=== PATIENT | male | born 1960 | race African-American/Black ===

== ENCOUNTER 2019-06-05 21:40 | Observation (INO) | payer BC, SELFPAY ==
--- NOTE | ~2019-06-05 | XR_ITS ---
EXAMINATION: XR chest 2V EXAM DATE: 06/05/2019 22:09 INDICATION: Midsternal chest pain. Hypertension. TECHNIQUE: Frontal and lateral projections of the chest obtained and reviewed. There is no prior neftali dy for comparison. FINDINGS: The lungs are clear. There are no pleural effusions. The cardiomediastinal silhouette is within normal limits. There is no pneumothorax suspected. Patient has diffuse idiopathic skeletal h yperostosis (DISH). IMPRESSION: No acute cardiopulmonary findings. Reviewed, dictated and finalized at location G.
[2019-06-05 21:45] VITALS: BP 165/98; PULSE 77; RESP 20; TEMP 36.7; O2SAT 99
[2019-06-05] MEDS: ASPIRIN 81 MG CHEWABLE TABLET 324 MG PO (21:56)
--- NOTE | 2019-06-05 21:56 | ECG_ITS ---
Measurements Intervals [place] Rate: 84 P: 21 UT: 191 QRS: -28 QRSD: 79 T: 124 QT: 365 QTc: 432 Interpretive Statements SINUS RHYTHM LEFT VENTRICULAR HYPERTROPHY AND ST-T CHANGE POOR R WAVE PROGRESSION, ANTERIOR LEADS ST ELEVATION IN ANT/INF LEADS- PROBABLY DUE TO LEFT VENTRICULAR HYPERTROPHY OR EARLY REPOLARIZATION BASELINE ARTIFACT- v5 BORDERLINE ECG Electronically Signed On 06-06-2019 7:34:26 CDT by Hamilton Guo D.O.
--- NOTE | 2019-06-05 21:56 | ED.CHESTPAIN ---
HPI - Chest Pain General Chief Complaint: Chest Pain Stated Complaint: chest tightness Time Seen by Provider: 06/05/19 21:48 Source: patient History of Present Illness complaint: chest pain and chest discomfort Onset (ago): day(s) (2) Timing of current episode: constant Onset: during rest and during exertion Pain location: substernal Pain radiation: none Severity: moderate Quality: tightness Relieving factors: nothing Exacerbating factors: nothing Treatment prior to arrival: none Related Data Allergies Allergy/AdvReac Type Severity Reaction Status Date / Time No Known Allergies Allergy Verified 06/05/19 21:50 Review of Systems Review of Systems: All systems reviewed & are unremarkable except as noted in HPI and below Constitutional: Constitutional: Denies body ache(s), Denies chills, Denies excessive sweating, Denies fatigue, Denies fever(s), Denies headache(s), Denies lethargy, Denies malaise, Denies weakness and Denies weight loss Eyes: Eyes: Denies blurry vision, Denies change in vision and Denies loss of vision ENT: Denies dizziness, Denies ear discharge, Denies headache(s), Denies lip swelling, Denies epistaxis, Denies nasal congestion, Denies neck pain, Denies throat swelling and Denies tongue swelling Cardiovascular: Cardiovascular: Denies diaphoresis, Denies rapid heart rate, Denies edema, Denies irregular heart rhythm, Denies lightheadedness, Denies palpitations, Denies dyspnea and Denies dyspnea on exertion Respiratory: Respiratory: Denies chest congestion, Denies cough, Denies hemoptysis, Denies dyspnea and Denies dyspnea on exertion Gastrointestinal: Gastrointestinal: Denies abdominal pain, Denies melena, Denies hematochezia, Denies diarrhea, Denies nausea, Denies vomiting and Denies hematemesis Musculoskeletal: Musculoskeletal: Denies abnormal gait, Denies deformity, Denies joint swelling, Denies limited range of motion, Denies neck pain and Denies numbness Neurologic: Denies Abnormal speech present, Denies abnormal gait, Denies confusion, Denies dizziness, Denies headache(s), Denies focal weakness, Denies loss of vision, Denies numbness, Denies Other visual disturbances, Denies Sensory deficit (Neuro) and Denies weakness Psychiatric: Psychiatric: Denies confusion, Denies depression, Denies auditory hallucinations, Denies homicidal ideation and Denies suicidal ideation Endocrine: Endocrine: Denies cold intolerance, Denies excessive sweating, Denies fatigue, Denies heat intolerance and Denies palpitations Hematologic/Lymphatic: Hematologic/Lymphatic: Denies easy bleeding and Denies easy bruising Allergic/Immunologic: Allergic/Immunologic: Denies lip swelling, Denies throat swelling and Denies tongue swelling Exam Const: General: cooperative, healthy appearing, comfortable, no acute distress, well developed, alert and awake; No confusion Orientation/consciousness: oriented to person, oriented to place, oriented to time, patient oriented x3 and No confusion Limitations: no limitations HENMT: Head: normal to inspection, normocephalic and atraumatic Ears: hearing grossly normal bilaterally, TM normal on the right and TM normal on the left General nose exam: Normal external nose present, Normal nares present and No nasal discharge present Face and sinus: normal facial exam Mouth: Yes Normal oral and palatal mucosa present, Yes lip normal, Yes tongue normal and Yes oropharynx normal Throat: posterior oropharynx normal, tonsils normal and uvula midline Eyes: General: appearance normal, both eyes and all related structures Pupils: Equal, round and reactive pupils present EOM: EOMs intact bilaterally Neck: Neck: normal visual inspection, full ROM, no lymphadenopathy and no meningeal signs Chest: Chest palpation & inspection: normal inspection of the chest Resp: Effort & Inspection: normal respiratory effort, able to speak in complete sentences, no respiratory distress and not tachypneic Auscultation: clear to aus
[2019-06-05 21:57] LABS: Basophils Percent Auto 0.4 % (0.2-1.2); Eosinophils Absolute Auto 0.1 K/mm3 (0-0.3); Hematocrit 47.5 % (42.0-52.0); Hemoglobin 16.1 g/dL (14.0-18.0); Lymphocytes Absolute Auto 2.64 K/mm3 (0.9-3.2); Lymphocytes Percent Auto 51.4 % (18.3-44.2); Mean Corpuscular HGB Conc 33.9 g/dl (32-36); Mean Corpuscular Hemoglobin 31.3 pg (26-34); Mean Corpuscular Volume 92.4 fl (80-100); Mean Platelet Volume 11.7 fl (7.4-10.4); Monocytes Absolute Auto 0.6 K/mm3 (0.1-0.6); Monocytes Percent Auto 11.7 % (2.6-8.5); Neutrophils Absolute Auto 1.8 K/mm3 (1.3-6.7); Neutrophils Percent Auto 35.5 % (45.5-73.1); Platelet Count Result 176 k/mm3 (150-375); Red Blood Count 5.14 M/mm3 (4.6-6.20); Red Cell Distribution Width 13.2 % (11.5-14.5); White Blood Count 5.1 K/mm3 (4.5-10.0)
[2019-06-05 22:09] LABS: Blood Urea Nitrogen 21 mg/dL (9-20); Calcium 9.3 mg/dL (8.4-10.2); Carbon Dioxide 27 mmol/L (22-30); Chloride 104 mmol/L (98-107); Estimated CRCL calculation 53 ml/min; Estimated Glomerular Filt Rate 58; Glucose 120 mg/dL (75-110); Potassium 3.9 mmol/L (3.4-5.0); Sodium 140 mmol/L (137-145)
[2019-06-05 22:10] LABS: Partial Thromboplastin Time 30.9 SECONDS (22.3-36.8)
[2019-06-05 22:21] LABS: Troponin I < 0.012 ng/mL (0.000-0.034)
[2019-06-05 23:11] VITALS: BP 138/90; PULSE 64; RESP 20; O2SAT 97
[2019-06-06 00:09] VITALS: BP 141/85; PULSE 57; RESP 16; O2SAT 100
[2019-06-06 00:10] VITALS: BP 141/88; PULSE 88; RESP 15; O2SAT 100
[2019-06-06 00:15] VITALS: BP 153/92; PULSE 55; RESP 18; TEMP 36.8; O2SAT 100
--- NOTE | 2019-06-06 00:48 | ECG_ITS ---
Measurements Intervals [place] Rate: 53 P: 28 [place]: 205 QRS: -26 QRSD: 78 T: 139 QT: 444 QTc: 418 Interpretive Statements SINUS BRADYCARDIA BORDERLINE AV CONDUCTION DELAY LEFT VENTRICULAR HYPERTROPHY AND ST-T CHANGE BORDERLINE R WAVE PROGRESSION, ANTERIOR LEADS ST ELEVATION IN ANT/INF LEADS- PROBABLY DUE TO LVH BORDERLINE ECG Electronically Signed On 06-06-2019 7:35:23 CDT by Hamilton Guo D.O.
[2019-06-06 00:56] VITALS: BMI 32.0
[2019-06-06 01:07] LABS: Troponin I < 0.012 ng/mL (0.000-0.034)
--- NOTE | 2019-06-06 03:48 | ECG_ITS ---
Measurements Intervals [place] Rate: 58 P: 23 [place]: 191 QRS: -28 QRSD: 91 T: 135 QT: 433 QTc: 429 Interpretive Statements SINUS BRADYCARDIA LEFT VENTRICULAR HYPERTROPHY AND ST-T CHANGE BORDERLINE R WAVE PROGRESSION, ANTERIOR LEADS ST ELEVATION IN ANT/INF LEADS- PROBABLY DUE TO LVH BORDERLINE ECG Electronically Signed On 06-06-2019 7:36:05 CDT by Hamilton Guo D.O.
[2019-06-06 04:00] VITALS: BP 144/89; PULSE 53; PULSE 55; RESP 18; TEMP 36.7; O2SAT 100
[2019-06-06 04:25] LABS: Troponin I < 0.012 ng/mL (0.000-0.034)
--- NOTE | 2019-06-06 06:20 | PC.NURSE ---
This patient, Harpal Rivas, was transferred to [facility] on 06/06/19 at 0610. Personal belongings sent with patient. Belongings list checked and signed with receiving. Report given to Clint MOSCOSO. Appropriate documentation sent with patient.
[2019-06-06 08:37] VITALS: BP 140/90; PULSE 55; RESP 14; O2SAT 99
--- NOTE | 2019-06-06 10:54 | PM.IMHP ---
H&P: HPI History of Present Illness Chief complaint: Chest Pain Narrative: Date of service: 06/06/2019. Harpal Riavs is a 59 year old male with past history of hypertension chronic kidney disease who presents to the hospital complaining of central chest discomfort. Started Two days. He states that when he drinks fluids weight is something he feels that he has to belch and then once he belches he feels relief of symptoms. It feels like indigestion. Denies shortness of breath, lower limb edema, orthopnea, paroxysmal nocturnal dyspnea, dizziness, syncope, lower limb edema. EKG interpreted myself shows sinus rhythm, LVH, T inversion leads 1 and aVL likely strain pattern. Troponins x2 negative. Review of Systems Review of Systems: All systems reviewed & are unremarkable except as noted in HPI and below Constitutional: Constitutional: Denies chills, Denies fatigue, Denies fever(s), Denies headache(s) and Denies snoring Eyes: Eyes: Denies eye discharge and Denies loss of vision ENT: Denies dizziness, Denies headache(s), Denies nasal discharge and Denies sore throat Cardiovascular: Cardiovascular: Reports as per HPI, Reports chest pain, Denies syncope, Denies rapid heart rate, Denies leg edema, Denies dyspnea, Denies dyspnea on exertion, Denies orthopnea and Denies paroxysmal nocturnal dyspnea Respiratory: Respiratory: Denies chest congestion, Denies cough, Denies dyspnea, Denies dyspnea on exertion, Denies snoring and Denies wheezing Gastrointestinal: Gastrointestinal: Denies abdominal pain, Denies diarrhea, Denies nausea and Denies vomiting Genitourinary: Genitourinary: Denies hematuria, Denies dysuria, Denies flank pain and Denies urinary frequency Musculoskeletal: Musculoskeletal: Denies myalgias, Denies arthralgias and Denies joint swelling Neurologic: Denies Abnormal speech present, Denies dizziness, Denies syncope, Denies headache(s), Denies focal weakness and Denies loss of vision Psychiatric: Psychiatric: Denies anxiety and Denies depression Endocrine: Endocrine: Denies cold intolerance, Denies fatigue and Denies heat intolerance Hematologic/Lymphatic: Hematologic/Lymphatic: Denies easy bleeding and Denies easy bruising Allergic/Immunologic: Allergic/Immunologic: Denies urticaria and Denies wheezing PMFSH Past Medical History Medical History Chronic kidney disease Hypertension Family History Family History Father Diabetes mellitus Mother Diabetes mellitus Sibling Diabetes mellitus Sibling Diabetes mellitus Sibling Diabetes mellitus Sibling Diabetes mellitus Sibling Diabetes mellitus Sibling Diabetes mellitus Sibling Diabetes mellitus Sibling Diabetes mellitus Social History Social History Smoking status: Never smoker Meds Home Medications and Allergies Home Medications Medication Instructions Recorded Confirmed Type amlodipine-atorvastatin 1 tablet PO DAILY 06/06/19 06/06/19 History valacyclovir 500 mg PO DAILY 06/06/19 06/06/19 History Allergies Allergy/AdvReac Type Severity Reaction Status Date / Time No Known Allergies Allergy Verified 06/05/19 21:50 Vital Signs Vital Signs - 24 hr 06/05/19 21:45 06/05/19 23:11 06/06/19 00:09 Temperature 36.7 C Pulse Rate 77 64 57 L Respiratory Rate 20 20 16 Blood Pressure 165/98 H 138/90 141/85 H Pulse Oximetry 99 97 100 06/06/19 00:10 06/06/19 00:15 06/06/19 04:00 Temperature 36.8 C 36.7 C Pulse Rate 88 55 L 55 L Respiratory Rate 15 18 18 Blood Pressure 141/88 H 153/92 H 144/89 H Pulse Oximetry 100 100 100 06/06/19 08:37 Temperature Pulse Rate 55 L Respiratory Rate 14 Blood Pressure 140/90 Pulse Oximetry 99 Exam Const: General: cooperative, healthy appearing, comfortable, no acute distress and well developed Nutritional Appearance: well n
--- NOTE | 2019-06-06 11:15 | PM.DS ---
DS: Diagnosis Admitting Diagnosis Admitting Diagnosis: Chest pain, unspecified Patient was admitted for chest pain that felt to be atypical. Troponins x3 negative and no ischemic changes on EKG. Telemetry was reviewed and no arrhythmias. Offered stress testing but patient preferred to go home because he did not want to stay NPO. Given normal troponins we agree that he can be discharged home and follow up as an outpatient. DS: Summary Time Spent with Patient Time attestation: Total time spent providing and/or coordinating discharge services:25 minutes Exam Const: General: cooperative, comfortable, no acute distress, alert and awake Nutritional Appearance: well nourished Orientation/consciousness: patient oriented x3 HENMT: Head: normal to inspection, normocephalic and atraumatic Ears: hearing grossly normal bilaterally General nose exam: Normal external nose present, Normal nares present and no nasal discharge noted Face and sinus: normal facial exam and no erythema Mouth: No drooling and No restricted motion Throat: uvula midline Eyes: General: appearance normal, both eyes and all related structures Alignment and Position: position normal Conjunctivae: conjunctivae normal Sclera: sclerae normal Direct Ophthalmoscopy: No photophobia Neck: Neck: normal visual inspection and no JVD Thyroid: thyroid normal Carotids: no bruits Lymphatic: lymphedema not noted Chest: Chest palpation & inspection: normal inspection of the chest and no tenderness Resp: Effort & Inspection: normal respiratory effort and no nasal flaring Auscultation: clear to auscultation bilaterally, no crackles, no rales and no wheezes Cardio: Jugular venous distension: no JVD Rate: regular rate Rhythm: regular rhythm Heart sounds: S1 normal heart sound present, S2 normal heart sound present, no gallops, no murmurs and no rubs GI: Inspection: non-distended GI Palp: No abdominal tenderness and No Soft to palpation Auscultation: normal bowel sounds Rectal Exam: deferred : General: No no CVA tenderness Back/Spine/Pelvis: Back: No no CVA tenderness Cervical Spine: cervical ROM normal Skin: General skin exam: normal color and rashes and/or lesions noted Neuro: General: patient oriented x3 Cranial nerves: No CN's II-XII intact bilaterally Speech: normal speech Motor exam (neuro): no tremors Extrem: General: normal to inspection and pedal edema present Psych: Appearance: grossly normal and well kempt Speech and movement: Normal speech and movement present Affect: normal affect DS: Data Data Completed and Pending Labs on day of discharge: Labs from last 24 hours 06/06/19 06/06/19 06/05/19 03:45 00:39 21:51 WBC RBC Hgb Hct MCV MCH MCHC RDW Plt Count MPV Immature Gran % (Auto) Neut % (Auto) Lymph % (Auto) Mcmullen % (Auto) Eos % (Auto) Baso % (Auto) Lymph # (Auto) Mcmullen # (Auto) Eos # (Auto) Baso # (Auto) Abs Immat Gran (auto) Absolute Neuts (auto) Absolute Nucleated RBC Nucleated RBC % PT INR APTT Sodium 140 Potassium 3.9 Chloride 104 Carbon Dioxide 27 BUN 21 H Creatinine 1.50 H Estim Creat Clear Calc 53 Estimated GFR 58 L Glucose 120 H Calcium 9.3 Troponin I < 0.012 < 0.012 < 0.012 06/05/19 06/05/19 21:51 21:51 WBC 5.1 RBC 5.14 Hgb 16.1 Hct 47.5 MCV 92.4 MCH 31.3 MCHC 33.9 RDW 13.2 Plt Count 176 MPV 11.7 H Immature Gran % (Auto) 0.0 Neut % (Auto) 35.5 L Lymph % (Auto) 51.4 H Mcmullen % (Auto) 11.7 H Eos % (Auto) 1.0 Baso % (Auto) 0.4 Lymph # (Auto) 2.64 Mcmullen # (Auto) 0.6 Eos # (Auto) 0.1 Baso # (Auto) 0.0 Abs Immat Gran (auto) 0.00 Absolute Neuts (auto) 1.8 Absolute Nucleated RBC 0.0 Nucleated RBC % 0.0 PT 13.0 INR 1.0 APTT 30.9 Sodium Potassium Chloride Carbon Dioxide BUN Creatinine Estim Creat Clear Calc Estimated GFR
--- NOTE | 2019-06-06 11:40 | PC.NURSE ---
1130-pt given D/C orders and instructions. Questions answered and verbalized understanding. AOx4. PIV removed. Ambulated per request to waiting vehicle. No distress noted or verbalized at time of departure.
== END 2019-06-06 11:26 | disposition home or self-care (01) ==
LOC: ANHED 23:21 → ANHIMU 06-06 00:53 → ANHCPC 06-06 08:14 → ANHIMU 06-07 14:35
PROVIDERS: Admitting Provider Internal Medicine Cardiovascular Disease; Emergency Provider Emergency Medicine; PCP Family Medicine; Visit Provider Internal Medicine Cardiovascular Disease
DX: R07.9 Chest pain, unspecified (principal); I12.9 Hypertensive chronic kidney disease with stage 1 through stage 4 chronic kidney disease, or unspecified chronic kidney disease; N18.9 Chronic kidney disease, unspecified
CPT/HCPCS: 36415; 71046; 80048; 84484; 85025; 85610; 85730; 93005; 99285; A9270; G0378

== ENCOUNTER 2019-11-21 19:35 | Emergency (ER) | payer BC, SELFPAY ==
[2019-11-21 19:40] VITALS: BP 177/94; PULSE 56; RESP 12; TEMP 36.2; O2SAT 100
--- NOTE | 2019-11-21 20:14 | ED.GENADULT ---
HPI - General Adult General Chief complaint: Extremity Injury, Upper Stated complaint: Pulled muscle? Time Seen by Provider: 11/21/19 19:54 Source: patient Mode of arrival: ambulatory Limitations: no limitations History of Present Illness HPI narrative: Patient is a 59-year-old male who presents to emergency department for evaluation of right neck and shoulder pain that began after swimming on Monday patient notes that the pain was an aching burning pain worse with activity and movement patient the next day went swimming again which made the pain worse patient denies other injury or trauma or similar occurrence patient took Aleve with relief but notes that the pain returns after the Aleve wears off. Related Data Home Medications Medication Instructions Recorded Confirmed amlodipine-atorvastatin 1 tablet PO DAILY 06/06/19 06/06/19 valacyclovir 500 mg PO DAILY 06/06/19 06/06/19 Allergies Allergy/AdvReac Type Severity Reaction Status Date / Time No Known Allergies Allergy Verified 11/21/19 19:52 Review of Systems Review of Systems: All systems reviewed & are unremarkable except as noted in HPI and below PMFSH Past Medical History Medical History (Updated 11/21/19 @ 20:17 by Paxton Hill PA-C) Chronic kidney disease Hypertension Family History Family History Father Diabetes mellitus Mother Diabetes mellitus Sibling Diabetes mellitus Sibling Diabetes mellitus Sibling Diabetes mellitus Sibling Diabetes mellitus Sibling Diabetes mellitus Sibling Diabetes mellitus Sibling Diabetes mellitus Sibling Diabetes mellitus Social History Social History Smoking status: Never smoker Gender identity (if verbalized by the patient): Male Exam Narrative: Exam Narrative: GENERAL: Well-appearing, well-nourished, and in no acute distress. HEAD: Normocephalic, atraumatic. EYES: PERRLA and EOMI. ENT: Nares clear, no rhinorrhea or epistaxis. Mucous membranes moist. NECK: Supple. No adenopathy or masses. No carotid bruits or JVD CHEST: Clear to auscultation. No respiratory distress. No wheezes rales or rhonchi HEART: Regular rate and rhythm. No murmur heard. Normal peripheral pulses. EXTREMITIES: Normal range of motion. No edema. Tenderness of the right rotator cuff musculature trapezius and right paraspinal musculature SKIN: Warm, dry, no rash. NEURO: No focal deficits. Alert and oriented x3. Cranial nerves II through XII grossly intact PSYCH: Normal mood and affect. Course Course Emergency Course: Patient in the room aware of case findings treatment plan diagnosis Vital Signs Vital signs: Vital Signs Temperature 97.1 F L 11/21/19 19:40 Pulse Rate 56 L 11/21/19 19:40 Respiratory Rate 12 11/21/19 19:40 Blood Pressure 177/94 H 11/21/19 19:40 Pulse Oximetry 100 11/21/19 19:40 Temperature 97.1 F L 11/21/19 19:40 Pulse Rate 56 L 11/21/19 19:40 Respiratory Rate 12 11/21/19 19:40 Blood Pressure 177/94 H 11/21/19 19:40 Pulse Oximetry 100 11/21/19 19:40 Medical Decision Making MDM Narrative Medical decision making narrative: Patients injury or pain is consistent with musculoskeletal etiology. No signs of neurological or vascular compromise on exam. Compartments and tisues are soft without signs of compartment syndrome. Pain is felt appropriate for further evaluation on an outpatient basis. Vital Signs Vital Signs: Vital Signs Temperature 97.1 F L 11/21/19 19:40 Pulse Rate 56 L 11/21/19 19:40 Respiratory Rate 12 11/21/19 19:40 Blood Pressure 177/94 H 11/21/19 19:40 Pulse Oximetry 100 11/21/19 19:40 Temperature 97.1 F L 11/21/19 19:40 Pulse Rate 56 L 11/21/19 19:40 Respiratory Rate 12 11/21/19 19:40 Blood Pressure 177/94 H 11/21/19 19:40 Pulse Oximetry 100 11/21/19 19:40 Discharge Plan Discharge Clinical Impressi
== END 2019-11-21 20:47 | disposition home or self-care (01) ==
PROVIDERS: Emergency Provider Emergency Medicine; PCP Family Medicine
DX: M54.12 Radiculopathy, cervical region (principal); I12.9 Hypertensive chronic kidney disease with stage 1 through stage 4 chronic kidney disease, or unspecified chronic kidney disease; N18.9 Chronic kidney disease, unspecified
CPT/HCPCS: 99283

== ENCOUNTER 2021-06-23 19:20 | Observation (INO) | payer BC, SELFPAY ==
[2021-06-23] VITALS (22 sets, daily range): BP systolic 133–156; BP diastolic 80–98; PULSE 44–60; RESP 12–20; TEMP 35.7–36.4; O2SAT 97–100
--- NOTE | ~2021-06-23 | XR_ITS ---
EXAMINATION: XR chest 2V Exam Date/Time: 06/23/2021 19:45 CDT HISTORY: MEDIAL CP, TAKES BLOOD PRESSURE AND CHOLESTEROL MEDICATION Comparison: 06/05/2019. RESULT: Lines, tubes, and devices: None. Lungs and pleura: Clear. Cardiomediastinal silhouette: Stable cardiomediastinal silhouette. Other: No acute osseous or upper abdominal finding. IMPRESSION: No acute cardiopulmonary process. Reviewed, dictated and finalized at location K.
--- NOTE | 2021-06-23 19:38 | ECG_ITS ---
Measurements Intervals [place] Rate: 57 P: 34 [place]: 194 QRS: -27 QRSD: 93 T: 138 QT: 437 QTc: 427 Interpretive Statements SINUS BRADYCARDIA LEFT VENTRICULAR HYPERTROPHY AND ST-T CHANGE T WAVE ABNORMALITY IN ANTEROLATERAL- CONSIDER ISCHEMIA ABNORMAL ECG Electronically Signed On 06-23-2021 20:10:19 CDT by Hamilton Guo D.O.
[2021-06-23 19:56] LABS: Basophils Percent Auto 0.7 % (0.2-1.2); Eosinophils Absolute Auto 0.1 K/mm3 (0-0.3); Eosinophils Percent Auto 1.8 % (0-4.4); Hematocrit 43.7 % (42.0-52.0); Hemoglobin 14.5 g/dL (14.0-18.0); Immature Granulocyte Absolute 0.01 K/mm3 (0.00-0.031); Immature Granulocyte Percent A 0.2 % (0-0.5); Lymphocytes Absolute Auto 2.47 K/mm3 (0.9-3.2); Lymphocytes Percent Auto 55.8 % (18.3-44.2); Mean Corpuscular HGB Conc 33.2 g/dl (32-36); Mean Corpuscular Hemoglobin 31.5 pg (26-34); Mean Corpuscular Volume 94.8 fl (80-100); Mean Platelet Volume 11.2 fl (7.4-10.4); Monocytes Absolute Auto 0.6 K/mm3 (0.1-0.6); Monocytes Percent Auto 13.3 % (2.6-8.5); Neutrophils Absolute Auto 1.3 K/mm3 (1.3-6.7); Neutrophils Percent Auto 28.2 % (45.5-73.1); Platelet Count Result 166 k/mm3 (150-375); Red Blood Count 4.61 M/mm3 (4.6-6.20); White Blood Count 4.4 K/mm3 (4.5-10.0)
[2021-06-23 20:07] LABS: INR 1.1; Prothrombin Time 13.4 Seconds (11.1-14.7)
[2021-06-23 20:08] LABS: Partial Thromboplastin Time 33.4 SECONDS (22.3-36.8)
[2021-06-23 20:09] LABS: Alanine Aminotransferase 47 U/L (6-50); Albumin Level 4.5 g/dL (3.5-5.1); Alkaline Phosphatase 46 U/L (38-126); Anion Gap 6 mmol/L (8-16); Aspartate Amino Transferase 40 U/L (17-59); Bilirubin,Total 0.4 mg/dL (0.2-1.3); Blood Urea Nitrogen 16 mg/dL (9-20); Calcium 8.8 mg/dL (8.4-10.2); Carbon Dioxide 24 mmol/L (22-30); Chloride 105 mmol/L (98-107); Estimated CRCL calculation 57 ml/min; Estimated Glomerular Filt Rate > 60; Glucose 156 mg/dL (65-110); Lipase 230 U/L (23-300); Sodium 135 mmol/L (137-145)
[2021-06-23 20:19] LABS: Troponin I < 0.012 ng/mL (0.000-0.034)
--- NOTE | 2021-06-23 20:42 | ED.CHESTPAIN ---
HPI - Chest Pain General Chief Complaint: Chest Pain Stated Complaint: chest pain Time Seen by Provider: 06/23/21 20:42 Source: RN notes reviewed History of Present Illness HPI narrative: Patient presents emergency department from home for chest pain. Patient states has been having intermittent chest pain today the pain is located in the midsternal chest with occasional radiation up into the left shoulder states that the left shoulder was aching earlier today but that is now better he stated he had no change in pain with movement states that the chest pain felt like a pressure and at times questionably was worse with movement but there is no definitive thing that he could do to make the symptoms worse states the pain is resolved at this time he denies any shortness of breath with the symptoms denies any fevers or chills abdominal pain Related Data Home Medications Medication Instructions Recorded Confirmed amlodipine-atorvastatin 1 tablet PO DAILY 06/06/19 06/06/19 valacyclovir 500 mg PO DAILY 06/06/19 06/06/19 Allergies Allergy/AdvReac Type Severity Reaction Status Date / Time No Known Allergies Allergy Verified 06/23/21 20:43 Review of Systems Review of Systems: Gen.: Denies fevers or chills ENT: Denies congestion Respiratory: Denies shortness of breath or cough CV: See HPI GI: Denies abdominal pain nausea, emesis or diarrhea Musculoskeletal: Denies back pain or muscle pain Neuro: Denies numbness, tingling, weakness or focal weakness Skin: Denies rash Except as documented, all other systems reviewed and negative PMFSH Past Medical History Medical History (Updated 06/23/21 @ 20:58 by Yomi Xie DO) Chronic kidney disease Hypercholesterolemia Hypertension Family History Family History Father Diabetes mellitus Mother Diabetes mellitus Sibling Diabetes mellitus Sibling Diabetes mellitus Sibling Diabetes mellitus Sibling Diabetes mellitus Sibling Diabetes mellitus Sibling Diabetes mellitus Sibling Diabetes mellitus Sibling Diabetes mellitus Social History Social History Smoking status: Never smoker Gender identity (if verbalized by the patient): Male Exam Narrative: APPEARANCE: No acute distress, nontoxic, resting in bed EYES: EOMI HEENT: Normocephalic, atraumatic, OMM RESPIRATORY: No respiratory distress Clear to auscultation bilaterally with no rhonchi wheezing or rales. CARDIOVASCULAR: Regular rate and rhythm without murmurs rubs or gallops. Chest: Nontender palpation no ecchymosis ABDOMINAL: Soft, nontender, nondistended, no rebound or guarding MUSCULOSKELETAl: Moves all extremities. No clubbing, cyanosis or edema. NEURO: Awake and alert. Following commands, speech normal, no focal deficits SKIN:: Warm, dry. No rashes lesions or abrasions PSYCHIATRIC: Normal affect/mood, Course Course Emergency Course: Discussed with Dr. Martinez agrees with admission [facility] Discussed with patient and family results of workup and diagnosis. Discussed need for admission. Patient and family understand and agree to current treatment plan Vital Signs Vital signs: Vital Signs Temperature 97.5 F L 06/23/21 19:30 Pulse Rate 55 L 06/23/21 19:30 Respiratory Rate 18 06/23/21 19:30 Blood Pressure 152/85 H 06/23/21 19:30 Pulse Oximetry 100 06/23/21 19:30 Temperature 97.5 F L 06/23/21 19:30 Pulse Rate 60 06/23/21 20:41 Respiratory Rate 16 06/23/21 20:41 Blood Pressure 156/98 H 06/23/21 20:41 Pulse Oximetry 100 06/23/21 20:41 MDM - Chest Pain Lab Data Result diagrams: 06/23/21 19:45 06/23/21 19:45 Labs: Lab Results 06/23/21 06/23/21 06/23/21 Range/Units 19:45 19:45 19:45 WBC 4.4 L (4.5-10.0) K/mm3 RBC 4.61 (4.6-6.20) M/mm3 Hgb 14.5 (14.0-18.0) g/dL Hct 43.7 (42.0-52.0) % MCV
[2021-06-23] MEDS: ASPIRIN 81 MG CHEWABLE TABLET 324 MG PO (22:20)
[2021-06-23 22:53] LABS: SARS-CoV-2 RNA PCR Negative
[2021-06-23 23:02] LABS: Troponin I < 0.012 ng/mL (0.000-0.034)
--- NOTE | 2021-06-23 23:35 | ADMGEN ---
This patient, Harpal Rivas, was admitted to IMU Room 211-01. Patient/family oriented to hospital policies and general routines including ID bracelet, bed and alarms, visiting hours, pain management, procedures, bathroom and other care routines, personal items, smoking policy, room service/diet, and visiting hours. Information on how to activate the Rapid Response Team has been discussed. Patient/Family are encouraged to report perceived risks to care and to ask questions if they do not understand what they are told or what they should do.
[2021-06-24] VITALS (11 sets, daily range): BP systolic 135–159; BP diastolic 83–97; PULSE 43–59; RESP 14–16; TEMP 36–36.8; O2SAT 98–100; BMI 30.2; BMI 29.8
--- NOTE | 2021-06-24 | ECHO_ITS ---
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 Summary 1. Complete two-dimensional, color flow and Doppler transthoracic echocardiogram is performed. 2. Left ventricular systolic function is normal, estimated at 60-65%. 3. There is moderately increased left ventricular wall thickness. 4. The left ventricular diastolic function is grade II diastolic dysfunction. 5. Left atrial chamber dimension is mildly enlarged. 6. There is trace mitral valve regurgitation. 7. There is mild tricuspid valve regurgitation. 8. No pulmonary hypertension, estimated pulmonary arterial systolic pressure is 23 mmHg. 9. There is small pericardial effusion. Left Ventricle Left ventricular chamber dimension is normal. Left ventricular systolic function is normal, estimated at 60-65%. There is moderately increased left ventricular wall thickness. Left ventricular septal wall motion is normal. The left ventricular diastolic function is grade II diastolic dysfunction. Global longitudinal strain is normal at -16 %. Right Ventricle Right ventricular chamber dimension is normal. Right ventricular systolic function is normal. Left Atria Left atrial chamber dimension is mildly enlarged. Right Atria Right atrial chamber dimension is normal. Atrial Septum Intact interatrial septum visualized by color flow imaging. Aortic Valve The aortic valve is trileaflet. There is no aortic valve sclerosis. There is no aortic valve stenosis. There is no aortic valve regurgitation. Pulmonic Valve The pulmonic valve is normal. There is no pulmonic valve stenosis. There is no pulmonic regurgitation. Mitral Valve The mitral valve has normal leaflets. There is no mitral valve stenosis. There is trace mitral valve regurgitation. Tricuspid Valve The tricuspid valve leaflets are normal. There is no significant tricuspid valve stenosis. There is mild tricuspid valve regurgitation. No pulmonary hypertension, estimated pulmonary arterial systolic pressure is 23 mmHg. Pericardium/Pleural The pericardium appears normal. There is small pericardial effusion. Inferior Vena Cava Normal inferior vena cava with >50% collapse upon inspiration consistent with normal right atrial pressure, 5 mmHg. Aorta The aortic root size at the sinus of Valsalva is normal. The prox ascending aorta size is normal. Left Ventricular Outflow Tract Name Value Normal LVOT 2D LVOT Diameter 2.0 cm LVOT Doppler LVOT Peak Gradient 6 mmHg LVOT Mean Grad
[2021-06-24 02:51] LABS: Troponin I < 0.012 ng/mL (0.000-0.034)
[2021-06-24 07:09] LABS: Cholesterol 165 mg/dL (0-200); HDL Direct 50 mg/dL; Triglycerides 53 mg/dL (<150)
[2021-06-24 07:23] LABS: LDL Cholesterol Direct 76 mg/dL
--- NOTE | 2021-06-24 08:35 | PC.NURSE ---
This patient, Harpal Rivas, was transferred to [facility] on 06/24/21 at 0835. Personal belongings sent with patient. Report given to Diana MOSCOSO. Appropriate documentation sent with patient.
--- NOTE | 2021-06-24 08:45 | PC.NURSE ---
ARRIVES VIA WC TO [employer] 5 [employer] STATUS PT. FROM IMU 211.1. ORIENTED TO ROOM, PLAN OF CARE. DENIES CP OR SOB. VSS. WILL CONTINUE TO MONITOR.
[2021-06-24] MEDS: ASPIRIN 81 MG CHEWABLE TABLET PO (09:08)
--- NOTE | 2021-06-24 11:12 | PM.CNCAR ---
Assessment and Plan Assessment and plan (1) Chest pain: Code(s): R07.9 - Chest pain, unspecified Status: Acute (2) Hypertension: Code(s): I10 - Essential (primary) hypertension Status: Acute History of Present Illness History of Present Illness Consult date/time: 06/24/21 11:12 Mr. Rivas is a 61-year-old male with a medical history of hypertension. He presents to the hospital with a chief complaint of chest pain. He was lifting a case of water off the top of his Fridge and decided to do some arm exercises with a case of water. He states that after this he experienced some midsternal chest pain. He had a similar experience about 2 years ago where he picked up a bag of mulch and had some chest pain followed by muscle soreness for a couple of days. Patient denies having any shortness of breath, palpitations, syncope, presyncope. He did not have any nausea or diaphoresis associated with his chest pain. Currently, he is free from chest pain and does not have any complaints at all. Reason For Visit: AMS, suspected infection PMFSH Past Medical History Medical History (Updated 06/23/21 @ 20:58 by Yomi Xie DO) Chronic kidney disease Hypercholesterolemia Hypertension Family History Family History Father Diabetes mellitus Mother Diabetes mellitus Sibling Diabetes mellitus Sibling Diabetes mellitus Sibling Diabetes mellitus Sibling Diabetes mellitus Sibling Diabetes mellitus Sibling Diabetes mellitus Sibling Diabetes mellitus Sibling Diabetes mellitus Social History Social History Smoking status: Never smoker Alcohol intake: never Substance use: never Living arrangements: alone Gender identity (if verbalized by the patient): Male Spiritual care concerns: No Meds Home Medications and Allergies Home Medications Medication Instructions Recorded Confirmed Type amlodipine-atorvastatin 1 tablet PO DAILY 06/06/19 06/23/21 History valacyclovir 500 mg PO DAILY 06/06/19 06/23/21 History sildenafil 100 mg PO DIRECTED PRN 06/24/21 06/24/21 History Allergies Allergy/AdvReac Type Severity Reaction Status Date / Time No Known Allergies Allergy Verified 06/23/21 20:43 Vital Signs Vital Signs - 24 hr 06/23/21 19:30 06/23/21 20:40 06/23/21 20:41 Temperature 36.4 C L Pulse Rate 55 L 58 L 60 Respiratory Rate 18 16 Blood Pressure 152/85 H 156/98 H Pulse Oximetry 100 100 06/23/21 20:44 06/23/21 20:45 06/23/21 21:00 Temperature Pulse Rate 52 L 51 L 50 L Respiratory Rate 20 16 17 Blood Pressure Pulse Oximetry 98 98 97 06/23/21 21:01 06/23/21 21:15 06/23/21 21:30 Temperature Pulse Rate 58 L 50 L 47 L Respiratory Rate 18 19 16 Blood Pressure 146/94 H Pulse Oximetry 98 97 06/23/21 21:31 06/23/21 21:45 06/23/21 22:00 Temperature Pulse Rate 49 L 48 L 48 L Respiratory Rate 19 18 20 Blood Pressure 145/96 H Pulse Oximetry 98 99 99 06/23/21 22:01 06/23/21 22:15 06/23/21 22:30 Temperature Pulse Rate 46 L 50 L 48 L Respiratory Rate 18 17 17 Blood Pressure 133/82 Pulse Oximetry 100 97 98 06/23/21 22:31 06/23/21 22:45 06/23/21 23:00 Temperature Pulse Rate 50 L 46 L 44 L Respiratory Rate 17 18 15 Blood Pressure 145/87 H Pulse Oximetry 98 98 97 06/23/21 23:01 06/23/21 23:02 06/23/21 23:15 Temperature Pulse Rate 44 L 46 L 44 L Respiratory Rate 12 17 17 Blood Pressure 133/81 Pulse Oximetry 99 100 100 06/23/21 23:40 06/24/21 00:00 06/24/21 04:00 Temperature 35.7 C L 36.8 C Pulse Rate 48 L 45 L 44 L Respiratory Rate 16 16 Blood Pressure 140/80 135/83 Pulse Oximetry 100 98 06/24/21 08:00 06/24/21 08:21 06/24/21 08:57 Temperature Pulse Rate 46 L 50 L Respiratory Rate Blood Pressure Pulse Oximetry 98 06/24/21 09:00 06/24/21 10:00 [facility]
--- NOTE | 2021-06-24 11:18 | PC.NURSE ---
JAZLYN SCHNEIDER TO BEDSIDE TO SEE PT.
--- NOTE | 2021-06-24 13:08 | PM.IMHP ---
H&P: HPI History of Present Illness Date/Time: 06/24/21 13:08 Chief Complaint: Chest pain Narrative: Mr. Rivas is a 61-year-old male with a medical history of hypertension. He presents to the hospital with a chief complaint of chest pain. He was lifting a case of water off the top of his Fridge and decided to do some arm exercises with a case of water. He states that after this he experienced some midsternal chest pain. He had a similar experience about 2 years ago where he picked up a bag of mulch and had some chest pain followed by muscle soreness for a couple of days. Patient denies having any shortness of breath, palpitations, syncope, presyncope. He did not have any nausea or diaphoresis associated with his chest pain. He runs long distances and plays tennis frequently and does not experience chest pain with these activities. He tells me that he has had a stress test in the past, about 2 years ago, that according to him was unremarkable. Currently, he is free from chest pain and does not have any complaints at all. Serial cardiac enzymes have been negative. EKG shows sinus rhythm, LVH, and T wave inversions in leads I, aVL, and V4-6. Review of Systems Constitutional: Constitutional: Denies difficulty sleeping, Denies fatigue, Denies lethargy and Denies night sweats Eyes: Eyes: Denies change in vision ENT: Reports Normal hearing present and Denies epistaxis Cardiovascular: Cardiovascular: Reports chest pain, Denies diaphoresis, Reports leg edema, Denies lightheadedness and Denies palpitations Respiratory: Respiratory: Denies dyspnea and Denies dyspnea on exertion Gastrointestinal: Gastrointestinal: Denies abdominal pain, Denies constipation and Denies diarrhea Genitourinary: Genitourinary: Denies urinary frequency and Denies urinary urgency Musculoskeletal: Musculoskeletal: Denies back pain and Denies neck pain Integumentary/Breasts: Skin/Breast: Denies pruritus, Denies rash and Denies wounds Neurologic: Denies Abnormal speech present, Denies confusion, Denies headache(s) and Denies numbness Psychiatric: Psychiatric: Denies anxiety and Denies depression Endocrine: Endocrine: Denies flushing, Denies heat intolerance, Denies polyphagia, Denies polydipsia and Denies polyuria Hematologic/Lymphatic: Hematologic/Lymphatic: Denies easy bleeding and Denies easy bruising Allergic/Immunologic: Allergic/Immunologic: Denies GI upset with certain foods, Denies lip swelling and Denies wheezing PMFSH Past Medical History Medical History Chronic kidney disease Hypercholesterolemia Hypertension Family History Family History Father Diabetes mellitus Mother Diabetes mellitus Sibling Diabetes mellitus Sibling Diabetes mellitus Sibling Diabetes mellitus Sibling Diabetes mellitus Sibling Diabetes mellitus Sibling Diabetes mellitus Sibling Diabetes mellitus Sibling Diabetes mellitus Social History Social History Smoking status: Never smoker Alcohol intake: never Substance use: never Living arrangements: alone Gender identity (if verbalized by the patient): Male Spiritual care concerns: No Meds Home Medications and Allergies Home Medications Medication Instructions Recorded Confirmed Type amlodipine-atorvastatin 1 tablet PO DAILY 06/06/19 06/23/21 History valacyclovir 500 mg PO DAILY 06/06/19 06/23/21 History sildenafil 100 mg PO DIRECTED PRN 06/24/21 06/24/21 History Allergies Allergy/AdvReac Type Severity Reaction Status Date / Time No Known Allergies Allergy Verified 06/23/21 20:43 Vital Signs Vital Signs - 24 hr 06/23/21 19:30 06/23/21 20:40 06/23/21 20:41 Temperature 36.4 C L Pulse Rate 55 L 58 L 60 Respiratory Rate 18 16 Blood Pressure 152/85 H 156/98 H Pulse Oximetry 100 100
--- NOTE | 2021-06-24 15:20 | PM.DS ---
DS: Admitting Diagnosis Discharge Date 06/24/2021 Admitting Diagnosis Chest pain DS: Discharge Diagnosis Discharge Diagnosis (1) Chest pain: Code(s): R07.9 - Chest pain, unspecified Status: Acute Assessment and Plan: Atypical chest pain. Description of chest pain consistent with musculoskeletal etiology. Serial cardiac enzymes negative. He does have T wave inversions in leads I, aVL, and V4-V6, typical LVH strain pattern. No further ischemic evaluation will be recommended at this time. Can consider outpatient stress testing. Will check an echo. (2) Hypertension: Code(s): I10 - Essential (primary) hypertension Status: Acute Assessment and Plan: Looks like it is generally at goal DS: Summary Hospital Course Hospital Course: Presented with chest pain that was atypical in nature. Description of chest pain consistent with musculoskeletal etiology. Serial cardiac enzymes negative. He does have T wave inversions in leads I, aVL, and V4-V6, typical LVH strain pattern. No further ischemic evaluation will be recommended at this time. Can consider outpatient stress testing. Time Spent with Patient Time attestation: Total time spent providing and/or coordinating discharge services: Exam Const: General: comfortable and no acute distress; No confusion Orientation/consciousness: No confusion HENMT: Head: normal to inspection, normocephalic and atraumatic Ears: hearing grossly normal bilaterally Eyes: General: appearance normal, both eyes and all related structures Pupils: Equal, round and reactive pupils present Neck: Neck: supple and no JVD Carotids: no bruits Resp: Auscultation: clear to auscultation bilaterally Cardio: Rate: regular rate Rhythm: regular rhythm Heart sounds: no murmurs GI: Auscultation: normal bowel sounds Skin: General skin exam: normal color Neuro: General: No confusion Cranial nerves: Yes Equal, round and reactive pupils present and Yes Normal hearing present Cognition (Neuro): normal cognition Speech: No Abnormal speech present Extrem: General: normal to inspection, no edema and no pedal edema Psych: Mental Status: mental status grossly normal DS: Data Data Completed and Pending Completed studies during hospitalization: 1. Complete two-dimensional, color flow and Doppler transthoracic echocardiogram is performed. ? 2. Left ventricular systolic function is normal, estimated at 60-65%. ? 3. There is moderately increased left ventricular wall thickness. ? 4. The left ventricular diastolic function is grade II diastolic dysfunction. ? 5. Left atrial chamber dimension is mildly enlarged. ? 6. There is trace mitral valve regurgitation. ? 7. There is mild tricuspid valve regurgitation. ? 8. No pulmonary hypertension, estimated pulmonary arterial systolic pressure is 23 mmHg. ? 9. There is small pericardial effusion. Labs on day of discharge: Labs from last 24 hours 06/24/21 06/23/21 06/23/21 01:53 22:25 22:25 WBC RBC Hgb Hct MCV MCH MCHC RDW Plt Count MPV Immature Gran % (Auto) Neut % (Auto) Lymph % (Auto) [place] % (Auto) Eos % (Auto) Baso % (Auto) Lymph # (Auto) [place] # (Auto) Eos # (Auto) Baso # (Auto) Abs Immat Gran (auto) Absolute Neuts (auto) Absolute Nucleated RBC Nucleated RBC % PT INR APTT Sodium Potassium Chloride Carbon Dioxide Anion Gap BUN Creatinine Estim Creat Clear Calc Estimated GFR Glucose Calcium Total Bilirubin AST ALT Alkaline Phosphatase Troponin I < 0.012 < 0.012 Total Protein Albumin Triglycerides 53 Cholesterol 165 LDL Cholesterol Direct 76 HDL Direct 50 Lipase SARS-CoV-2 RNA (RT-PCR) 06/23/21 06/23/21 06/23/21 22:00 19:45 19:45 WBC RBC Hgb Hct MCV MCH MCHC RDW Plt Count MPV Immature Gran % (A
== END 2021-06-24 16:50 | disposition home or self-care (01) ==
LOC: ANHED 21:16 → ANHIMU 06-24 06:37 → ANHCPC 06-24 16:18 → ANHIMU 06-25 11:19
PROVIDERS: Admitting Provider Internal Medicine Cardiovascular Disease; Emergency Provider Emergency Medicine; PCP Family Medicine; Visit Provider Internal Medicine Cardiovascular Disease
DX: R07.9 Chest pain, unspecified (principal); N18.9 Chronic kidney disease, unspecified; E78.00 Pure hypercholesterolemia, unspecified; I12.9 Hypertensive chronic kidney disease with stage 1 through stage 4 chronic kidney disease, or unspecified chronic kidney disease; Z20.822 Contact with and (suspected) exposure to COVID-19
CPT/HCPCS: 36415; 71046; 80053; 80061; 83690; 84484; 85025; 85610; 85730; 93005; 93306; 99285; A9270; C9803; G0378; U0003; U0005

== ENCOUNTER 2023-08-25 06:54 | Emergency (ER) | payer MEDICARE, SELFPAY ==
--- NOTE | ~2023-08-25 | XR_ITS ---
XR abdomen/kub 1V 08/25/2023 10:20 INDICATION: Abdominal pain TECHNIQUE: KUB COMPARISON: CT dated 08/25/2023 FINDINGS: Bowel gas pattern is normal. There is no evidence of free air, mass, organomegaly, ascites or obstruction. There is a left renal stone. There is a calcification in the left pelvis which may r epresent migration of left ureteral stone seen on CT. There are pelvic phleboliths. The bones appear intact. IMPRESSION: 1: Possible distal migration of left ureteral stones on CT examination into the pelvis. 2: Left nephrolithiasis. Reviewed, dictated and finalized at location B.
--- NOTE | ~2023-08-25 | CT_ITS ---
Non-contrast CT scan of the Abdomen and Pelvis Clinical indication: Left flank pain Technique: 2.5 mm axial scans were obtained through the abdomen and pelvis without intravenous or or al contrast. Dose reduction technique was used on this scan by utilizing automated exposure control a nd iterative reconstruction technique. The dose-length product (DLP) was 225.34 mGy-cm. Findings: Images through the lung bases reveal no abnormalities. There is a 7.5 mm ovoid proximal left ureteral stone, with mild left hydronephrosis to this level. Ad ditional bilateral nonobstructing renal stones are present, with large of these in the left kidney me asuring 10 mm in diameter. No right ureteral stone or right hydronephrosis. The liver, spleen, pancreas, gallbladder, and adrenals appear normal. There is no aortic aneurysm. There is no evidence of bowel obstruction. Images through the pelvis were performed. There is no evidence of ascites or lymphadenopathy. Urinary bladder unremarkable. No pelvic mass seen. Impression: 7.5 mm proximal left ureteral stone with mild left hydronephrosis. Additional bilateral nonobstructing nephrolithiasis, as detailed above. Reviewed, dictated and finalized at location . Impression: 7.5 mm proximal left ureteral stone with mild left hydronephrosis. Additional bilateral nonobstructing nephrolithiasis, as detailed above.
[2023-08-25 07:07] VITALS: BP 175/104; PULSE 85; RESP 18; TEMP 36.3; O2SAT 100
[2023-08-25 07:31] LABS: Basophils Percent Auto 0.3 % (0.2-1.2); Eosinophils Percent Auto 0.1 % (0-4.4); Hematocrit 45.9 % (42.0-52.0); Hemoglobin 15.5 g/dL (14.0-18.0); Immature Granulocyte Absolute 0.02 K/mm3 (0.00-0.031); Immature Granulocyte Percent A 0.3 % (0-0.5); Mean Corpuscular HGB Conc 33.8 g/dl (32-36); Mean Corpuscular Hemoglobin 31.6 pg (26-34); Mean Corpuscular Volume 93.5 fl (80-100); Mean Platelet Volume 11.1 fl (7.4-10.4); Monocytes Absolute Auto 0.6 K/mm3 (0.1-0.6); Monocytes Percent Auto 7.4 % (2.6-8.5); Neutrophils Absolute Auto 5.4 K/mm3 (1.3-6.7); Neutrophils Percent Auto 67.9 % (45.5-73.1); Platelet Count Result 192 k/mm3 (150-375); Red Blood Count 4.91 M/mm3 (4.6-6.20); Red Cell Distribution Width 12.9 % (11.5-14.5); White Blood Count 7.9 K/mm3 (4.5-10.0)
[2023-08-25 07:37] LABS: Add Urine Microscopic? YES; Appearance Urine Clear (Clear); Bacteria Urine None Seen /hpf; Bilirubin Urine Negative (Negative); Blood Urine 2+ (Negative); Color Urine Yellow (Yellow); Glucose Urine UA Negative (Negative); Ketones Urine Negative (Negative); Leukocyte Esterase Ur Negative LEU/UL (Negative); Nitrate Urine Negative (Negative); Non Pathogenic Casts 0-2; Protein Urine Negative (Negative); RBC Urine 21-50 /hpf (0-2); Specific Grav Ur 1.011 (1.001-1.035); Squamous Epithelial Cell Urine None Seen /hpf (Few); WBC Urine 0-5 /hpf (0-3); pH Urine 6.5 (5.0-9.0)
[2023-08-25 07:41] LABS: Alanine Aminotransferase 50 U/L (6-50); Alkaline Phosphatase 38 U/L (38-126); Anion Gap 14 mmol/L (4-12); Aspartate Amino Transferase 36 U/L (17-59); Bilirubin,Total 0.7 mg/dL (0.2-1.3); Blood Urea Nitrogen 20 mg/dL (9-20); Calcium 9.3 mg/dL (8.4-10.2); Carbon Dioxide 22 mmol/L (22-30); Chloride 99 mmol/L (98-107); Estimated CRCL calculation 43 ml/min; Estimated Glomerular Filt Rate 49; Glucose 130 mg/dL (65-110); Potassium 4.4 mmol/L (3.4-5.0); Sodium 135 mmol/L (137-145)
--- NOTE | 2023-08-25 07:41 | ED.ABDPAIN ---
HPI - Abdominal Pain General Chief Complaint: Abdominal Pain Stated Complaint: abd pain Time Seen by Provider: 08/25/23 07:36 Source: patient Mode of arrival: ambulatory Limitations: no limitations History of Present Illness HPI narrative: Patient presents with complaint of left flank pain starting approximately 2:00 a.m while at work. He called 911 and [facility] he states that approximately 50 people in the waiting room and he left before being seen. He tried Pepto-Bismol since he thought it might be the [employer] fried rice he ate. He had the [employer] stage driver stop so he could buy some Tums but this didn't help either. Patient also is in his abdomen and radiates. He denies any fever. His last bowel movement was this morning denies any bladder diarrhea. He denies any hematuria or dysuria. He does have baseline urinary urgency. He has a history of kidney stones several times years ago. He also has a history of a perforated appendix 8-10 years ago he states this pain felt intensely similar. He denies any previous history of urinary tract infection number. Denies nausea. He feels bloated. States he has stage 3 kidney disease which is being managed/followed by his primary care physician. He does not have a care connector. Related Data Home Medications Medication Instructions Recorded Confirmed amlodipine 10 mg-atorvastatin 10 1 tablet PO DAILY 06/06/19 06/23/21 mg tablet valacyclovir 500 mg tablet 500 mg PO DAILY 06/06/19 06/23/21 sildenafil 100 mg tablet 100 mg PO DIRECTED PRN Erectile 06/24/21 06/24/21 Dysfunction Allergies Allergy/AdvReac Type Severity Reaction Status Date / Time No Known Allergies Allergy Verified 08/25/23 07:37 [facility] Past Medical History Medical History Chronic kidney disease Hypercholesterolemia Hypertension Family History Family History Father Diabetes mellitus Mother Diabetes mellitus Sibling Diabetes mellitus Sibling Diabetes mellitus Sibling Diabetes mellitus Sibling Diabetes mellitus Sibling Diabetes mellitus Sibling Diabetes mellitus Sibling Diabetes mellitus Sibling Diabetes mellitus Social History Social History (Updated 08/27/23 @ 15:42 by Keisha Duarte MD) Smoking status: Never smoker Alcohol intake: never Substance use: never Living arrangements: alone Occupation/Education: occupation Additional occupation/education comments: Works for [employer] Gender identity (if verbalized by the patient): Male Spiritual care concerns: No Exam Narrative: GENERAL: Well-appearing, well-nourished, in moderate acute distress, at times standing and at times sitting trying to get comfortable. HEAD: Normocephalic, atraumatic. EYES: Non injected, non icteric ENT: Nares clear, no rhinorrhea or epistaxis. NECK: Supple. CHEST: Speaking in full sentences. No respiratory distress. HEART: Regular rate and rhythm. . ABDOMEN: Soft, nondistended. EXTREMITIES: Normal range of motion. No edema. SKIN: Warm, dry, no rash. NEURO: No focal deficits. Alert and oriented x3. PSYCH: Normal mood and affect. Course Vital Signs Vital signs: Vital Signs Temperature 97.4 F L 08/25/23 07:07 Pulse Rate 85 08/25/23 07:07 Respiratory Rate 18 08/25/23 07:07 Blood Pressure 175/104 H 08/25/23 07:07 Pulse Oximetry 100 08/25/23 07:07 Temperature 97.4 F L 08/25/23 07:07 Pulse Rate 62 08/25/23 12:13 Respiratory Rate 18 08/25/23 12:13 Blood Pressure 110/73 08/25/23 12:13 Pulse Oximetry 98 08/25/23 12:13 MDM - Abdominal Pain MDM Narrative Medical decision making narrative: Patient presents with left flank pain starting at approximately 2:00 a.m.. In the emergency department he is afebrile with vital signs notable for hypertension. Patient has microscopic hematuria and
[2023-08-25] MEDS: MORPHINE SULFATE (*CRX) 4 MG/ML INJ IV PUSH (08:05)
[2023-08-25] MEDS: SODIUM CHLORIDE 0.9% IV 1,000 ML 999 ML IV CONT (08:06)
[2023-08-25] MEDS: ACETAMINOPHEN 500 MG TABLET 1000 MG PO (09:35)
[2023-08-25] MEDS: HYDROmorphone HCL INJ (*CRX) 1 MG/ML SYR 0.5 MG IV PUSH (09:35)
[2023-08-25] MEDS: KETOROLAC 15 MG/ML VIAL (*BKC) IV PUSH (09:35)
[2023-08-25 09:37] LABS: Lipase 50 U/L (23-300)
[2023-08-25 09:39] VITALS: BP 154/90; PULSE 77; RESP 18; O2SAT 100
--- NOTE | 2023-08-25 11:56 | WPDURCON ---
Assessment and Plan Assessment and plan (1) Left ureteral stone: Code(s): N20.1 - Calculus of ureter Status: Acute Assessment and Plan: CT shows proximal 7.5 mm left ureter stone with likely migration to distal ureter on repeat KUB. Will plan for outpatient f/u with repeat CT on 08/28/23 and then if stone is persistent will plan for left ESWL as an outpatient. Home with tamsulosin, analgesics, antiemetics. Avoid NSAIDs. Patient is not on anticoagulation/antiplatelets. (2) Bilateral renal stones: Code(s): N20.0 - Calculus of kidney Status: Acute Assessment and Plan: Nonobstructing bilateral renal stones, large on left side measuring up to 10 mm. Will plan for left ESWL as above. Will likely require left ureteral stent given size. Urology Consult Note HPI Date Seen: 08/25/23 Primary Care Provider: Loco Jackson, Consult Narrative Narrative: Harpal Rivas is a 63 year old male with a history of kidney stones which have passed spontaneously who is being seen in consultation for left ureteral stone. He presented to the ER today with sudden onset of left flank pain while at work which he rated as 9/10. He called an ambulance which took him to [facility] but due to computer issues and wait time, he took an Uber to this facility for evaluation instead. He had no associated nausea, vomiting, fever, chills, dysuria, or hematuria. On arrival to the ER, his vital signs were stable, he was afebrile, WBC 7.9, creatinine 1.7, and UA with only RBCs. A CT of his abdomen/pelvis was completed which showed a 7.5 mm proximal left ureter stone with mild hydronephrosis and bilateral nonobstructing renal stones, large on left side measuring up to 10 mm. A follow up KUB was completed which shows visible renal stones and suspected migration of the proximal left ureter stone to the distal ureter. At the time of my evaluation, the patient is resting comfortably. His pain has resolved with analgesics and he continues to deny N/V/F/C. Discussed options for management and patient feels comfortable to return home. Will plan for office visit early next week with repeat CT to reassess stones and then schedule left ESWL later in the week. Review of Systems Review of Systems: All systems reviewed & are unremarkable except as noted in HPI and below PMFSH Past Medical History Medical History Chronic kidney disease Hypercholesterolemia Hypertension Family History Family History Father Diabetes mellitus Mother Diabetes mellitus Sibling Diabetes mellitus Sibling Diabetes mellitus Sibling Diabetes mellitus Sibling Diabetes mellitus Sibling Diabetes mellitus Sibling Diabetes mellitus Sibling Diabetes mellitus Sibling Diabetes mellitus Social History Social History Smoking status: Never smoker Alcohol intake: never Substance use: never Living arrangements: alone Gender identity (if verbalized by the patient): Male Spiritual care concerns: No Meds Home Medications and Allergies Home Medications Medication Instructions Recorded Confirmed Type amlodipine 10 mg-atorvastatin 10 1 tablet PO DAILY 06/06/19 06/23/21 History mg tablet valacyclovir 500 mg tablet 500 mg PO DAILY 06/06/19 06/23/21 History sildenafil 100 mg tablet 100 mg PO DIRECTED PRN Erectile 06/24/21 06/24/21 History Dysfunction ondansetron 4 mg disintegrating 4 mg PO Q8H PRN nausea and 08/25/23 Rx tablet vomiting #7 tabs tamsulosin 0.4 mg capsule 0.4 mg PO HS #14 caps 08/25/23 Rx Allergies Allergy/AdvReac Type Severity Reaction Status Date / Time No Known Allergies Allergy Verified 08/25/23 07:37 Vital Signs Vital Signs - 24 hr 08/25/23 07:07 08/25/23 09:39 Temperature 97.4 F L Pulse Rate 85 77 Respiratory Rate 18 18 B
[2023-08-25] MEDS: TAMSULOSIN HCL 0.4 MG CAPSULE PO (12:12)
[2023-08-25 12:13] VITALS: BP 110/73; PULSE 62; RESP 18; O2SAT 98
== END 2023-08-25 12:36 | disposition home or self-care (01) ==
PROVIDERS: Emergency Provider Student in an Organized Health Care Education/Training Program; PCP Family Medicine
DX: N13.2 Hydronephrosis with renal and ureteral calculous obstruction (principal); I12.9 Hypertensive chronic kidney disease with stage 1 through stage 4 chronic kidney disease, or unspecified chronic kidney disease; N18.9 Chronic kidney disease, unspecified
CPT/HCPCS: 36415; 74018; 74176; 80053; 81001; 83690; 85025; 96361; 96374; 96375; 99284; A9270; J1170; J1885; J2270; J7030

== ENCOUNTER 2023-08-28 13:22 | Outpatient (CLI) | payer MEDICARE, SELFPAY ==
--- NOTE | ~2023-08-28 | XR_ITS ---
XR abdomen/kub 1V 08/28/2023 13:49 Indication: Ureteral stone Procedure: KUB Comparison: 08/25/2023 Findings: Bowel gas pattern is nonobstructive. There is a left renal stone measuring approximately 9 mm. Bowel gas pattern nonobstructive. Calcification in the left pelvis, consistent with UVJ stone. Impression: 1: Probable left UVJ stone. 2: Left nephrolithiasis. Reviewed, dictated and finalized at location B. Impression: 1: Probable left UVJ stone. 2: Left nephrolithiasis.
--- NOTE | ~2023-08-28 | CT_ITS ---
CT abdomen pelvis wo con Ordering provider: Lindsey Moya PA-C History: 63 years Male with . Calculus of ureter . Comparison: None. Technique: CT abdomen and pelvis without IV and without oral contrast. Automated exposure control and iterative reconstruction technique were employed. The dose-length product was 215.10 mGy-cm. Findings: VISUALIZED LOWER CHEST: Bilateral subsegmental atelectatic changes. UPPER ABDOMINAL ORGANS: Liver: Normal. Gallbladder: Normal. Spleen: Normal. Stomach/duodenum: Normal. Pancreas: Normal. Adrenals: Normal. Kidneys: Bilateral kidney stones with the largest in the left kidney lower pole measuring 1.1 cm. Sto ne in the left lower ureter measuring 6 mm with dilated left pelvicalyceal system PELVIC ORGANS: The bladder shows thickened wall suggestive of cystitis. Further evaluation advised. BOWEL AND MESENTERY: Colon: No evidence of diverticulitis. the appendix is not demonstrated. Small Bowel: Normal. No obstruction. Peritoneum/mesentery: No free air or free fluid. No mesenteric lymphadenopathy. RETROPERITONEUM: Mild atheromatous disease of the abdominal aorta. No retroperitoneal lymphadenopat hy. MUSCULOSKELETAL: Superficial soft tissues: Tiny fat-containing umbilical hernia. Otherwise, The superficial soft tissu es are normal. Bones: Age appropriate degenerative changes of the spine. Bilateral sacroiliacs. IMPRESSION: 1. Stone in the left lower ureter with dilated left pelvicalyceal system. Bilateral kidney stones. 2. Thickened wall of urinary bladder which may indicate cystitis. 3. Tiny fat-containing umbilical hernia. Reviewed, dictated and finalized at location A. IMPRESSION: 1. Stone in the left lower ureter with dilated left pelvicalyceal system. Bila teral kidney stones. 2. Thickened wall of urinary bladder which may indicate cystitis. 3. Tiny fat-containing umbilical hernia.
== END 2023-08-28 13:23 | disposition home or self-care (01) ==
LOC: ANHIMG 13:27
PROVIDERS: PCP Family Medicine; Visit Provider Physician Assistant
DX: N20.2 Calculus of kidney with calculus of ureter (principal); K42.9 Umbilical hernia without obstruction or gangrene; N32.89 Other specified disorders of bladder
CPT/HCPCS: 74018; 74176

== ENCOUNTER 2023-10-20 09:50 | Outpatient (CLI) | payer MEDICARE, SELFPAY ==
--- NOTE | ~2023-10-20 | XR_ITS ---
EXAMINATION: XR abdomen/kub 1V DATE: 10/20/2023 10:17 INDICATION: Kidney stone. TECHNIQUE: A supine view of the abdomen on 2 radiographs was obtained. COMPARISON: Abdomen radiographs 08/28/2023, CT abdomen and pelvis 08/28/2023 FINDINGS: There are no dilated loops of bowel. There is a 9 mm stone in left kidney. IMPRESSION: 1. 9 mm left kidney stone. Reviewed, dictated and finalized at location A. IMPRESSION: 1. 9 mm left kidney stone.
== END 2023-10-20 09:51 | disposition home or self-care (01) ==
PROVIDERS: PCP Family Medicine; Visit Provider Urology
DX: N20.0 Calculus of kidney (principal)
CPT/HCPCS: 74018

== ENCOUNTER 2024-03-16 12:00 | Emergency (ER) | payer MEDICARE, SELFPAY ==
[2024-03-16] VITALS (10 sets, daily range): BP systolic 122–143; BP diastolic 70–82; PULSE 55–68; RESP 12–20; TEMP 36.5; O2SAT 100
--- NOTE | ~2024-03-16 | CT_ITS ---
EXAMINATION: CT brain wo con DATE: 03/16/2024 13:50 INDICATION: Vertigo. TECHNIQUE: Computed tomography (CT) of the head was performed without intravenous contrast. The mA wa s adjusted according to patient size. Iterative reconstruction technique was employed. The dose-lengt h product was 605.33 mGy-cm. COMPARISON: None FINDINGS: There is no intracranial hemorrhage, acute infarction, or abnormal intracranial mass lesion . The ventricles are normal in size. There is mild mucosal thickening ethmoid sinuses. The mastoid ai r cells are normal. IMPRESSION: 1. Normal brain. Reviewed, dictated and finalized at location A. ERCIAL INSULATOR IMPRESSION: 1. Normal brain.
--- NOTE | 2024-03-16 12:05 | ECG_ITS ---
Test Date: 2024-03-16 12:08:11 Measurements Intervals [place] Rate: 59 P: 27 MN: 191 QRS: -22 QRSD: 95 T: 134 QT: 419 QTc: 418 Interpretive Statements SINUS BRADYCARDIA LEFT VENTRICULAR HYPERTROPHY AND ST-T CHANGE BORDERLINE R WAVE PROGRESSION, ANTERIOR LEADS BORDERLINE ECG No previous ECG available for comparison Electronically Signed On 03-16-2024 13:12:22 [employer] by Hamilton Guo D.O.
--- OUTSIDE RECORDS SUMMARY | 2024-03-16 12:41 | XMS_ITS | Referral Summary ---
Author Organization [facility] Address [address] [place] [address] Care Team Providers Care Cesspool Cleaner Name Role Phone Loco Jackson MD Primary Care Provider [phone] Encounters Date Type Department Care Team Description 03/13/2024 9:15 AM ANGIOGRAPHY TECHNOLOGIST Lab [facility] [address] [place] [address] Essential hypertension; Mixed hyperlipidemia; Stage 3a chronic kidney disease (HCC) 03/13/2024 2:30 PM ANGIOGRAPHY TECHNOLOGIST Office Visit [facility] at [address] [phone] Loco Jackson MD Essential hypertension (Primary Dx); Gastroesophageal reflux disease without esophagitis; Mixed hyperlipidemia; Benign hypertensive kidney disease with chronic kidney disease stage I through stage IV, or unspecified(403.10) 03/12/2024 Telephone [facility] at [address] [place] [phone] Loco Jackson MD blood work 03/08/2024 11:40 AM ANGIOGRAPHY TECHNOLOGIST Lab [facility] [address] [place] [phone] Essential hypertension; Mixed hyperlipidemia 02/19/2024 11:00 AM ANGIOGRAPHY TECHNOLOGIST Office Visit [facility] at [address] [phone] Nikky Shelby NP Class 1 obesity with serious comorbidity and body mass index (BMI) of 30.0 to 30.9 in adult, unspecified obesity type (Primary Dx) 02/06/2024 2:00 PM ANGIOGRAPHY TECHNOLOGIST Office Visit [facility] at [address] [phone] Nikky Shelby NP Class 1 obesity with serious comorbidity and body mass index (BMI) of 30.0 to 30.9 in adult, unspecified obesity type (Primary Dx) 01/17/2024 10:00 AM ANGIOGRAPHY TECHNOLOGIST Office Visit [facility] at [address] [phone] Nikky Shelby NP Class 1 obesity with serious comorbidity and body mass index (BMI) of 30.0 to 30.9 in adult, unspecified obesity type (Primary Dx) 01/10/2024 11:00 AM ANGIOGRAPHY TECHNOLOGIST Office Visit [facility] at [address] [phone] Nikky Shelby NP Class 1 obesity with serious comorbidity and body mass index (BMI) of 31.0 to 31.9 in adult, unspecified obesity type (Primary Dx) 01/03/2024 9:00 AM ANGIOGRAPHY TECHNOLOGIST Office Visit [facility] at [address] [phone] Nikky Shelby NP Class 1 obesity with serious comorbidity and body mass index (BMI) of 31.0 to 31.9 in adult, unspecified obesity type (Primary Dx) 12/22/2023 2:15 PM ANGIOGRAPHY TECHNOLOGIST Lab [facility] [address] [place] [phone] 12/18/2023 12:45 PM ANGIOGRAPHY TECHNOLOGIST - 12/18/2023 11:59 PM ANGIOGRAPHY TECHNOLOGIST Hospital Encounter [facility] [address] [place] [phone] Calculus of kidney Discharge Disposition: Discharge to home or self care from Last 3 Months Allergies No known active allergies Medications sildenafiL (VIAGRA) 100 mg tablet Take 1 tablet (100 mg total) by mouth as needed for erectile dysfunction 30 tablet 4 Active famotidine (PEPCID) 40 mg tablet TAKE 1 TABLET DAILY 100 tablet 1 4 Active atorvastatin (LIPITOR) 10 mg tablet TAKE 1 TABLET DAILY 100 tablet 1 4 Active amLODIPine (NORVASC) 10 mg tabletIndication s:Essential hypertension TAKE 1 TABLET DAILY 90 tablet 3 4 Active valACYclovir (VALTREX) 500 mg tablet TAKE 1 TABLET DAILY 100 tablet 1 4 Active lisinopriL (PRINIVIL,ZESTRI L) 40 mg tablet TAKE 1 TABLET DAILY 90 tablet 3 4 Active tirzepatide, weight loss, (ZEPBOUND) 2.5 mg/0.5 mL solution vialIndications: Class 1 obesity with serious comorbidity and body mass index (BMI) of 30.0 to 30.9 in adult, unspecified obesity type Inject 0.5 mL (2.5 mg total) under the skin once a week This medication record is used for ordering a prescription for Jaylene [facility]rero 2 mL 3 4 Active Active Problems Problem Noted Date Diagnosed Date Class 1 obesity with serious comorbidity and body mass index (BMI) of 30.0 to 30.9 in adult 12/14/2023 Assessment & Plan (02/19/2024 12:18 PM ANGIOGRAPHY TECHNOLOGIST): Chip 6 Continue Zepbound 2.5 mg injection once weekly. Started 01/2024. Doing well and denies side effects. Visit began at 1104 Visit ended at 1149 Pre/post charting time - 5 minutes My total encounter time on 02/19/2024 was 50 minutes which was spent in the activities documented in the note. This includes time spent prior to the visit and after the visit in direct care of the patient. This time does not include time spent in any separately reportable services. Start Date: 12/14/2023 Start weight: 203 lb Weight today: 296 lb Total weight loss: -7 lb Wt Readings from Last 3 Encounters: 02/19/24 89.3 kg (196 lb 12.8 oz) 02/06/24 89.5 kg (197 lb 4.8 oz) 01/17/24 90.9 kg (200 lb 8 oz) Patient presents for weight loss education. Today we discussed physical activity facts, barriers and benefits of exercise. We discussed some non-exercise activities and activity recommendations. Last visit goal: Be more active, start back swimming. Be a better listener. Continue to be able to wear expensive suits. Goal was - NOT MET. Goal for next session:Silver sneakers [facility]/talk on the phone. Gratefulness: New year! Staying healthy, continue weight loss. TDEE calculated today: Total Daily Calories: 1500 calories/day Total Daily Protein: 150 grams protein/day Increase protein in diet. Examples: 1 whole egg and 2 servings of egg whites, protein supplement shakes, Promoboxx core power elite shake has 42 g of protein, the plan core power shakes have 26 g of protein, protein bars, protein:ratio yogurt, oikos pro yogur, or oikos triple zero yogurt with a scoop of protein powder, increased meat intake, low fat cottage cheese, collagen peptides-these can sometimes be used as a creamer in your coffee The 5 A's framework was used throughout the session BMI Follow-up includes: nutrition counseling, exercise counseling, and education provided Assessment & Plan (02/06/2024 2:52 PM ANGIOGRAPHY TECHNOLOGIST): Chip 5 Continue Zepbound 2.5 mg injection once weekly. Started 01/2024. Doing well and denies side effects. Visit began at 1406 Visit ended at 1441 Pre/post charting time - 10 minutes My total encounter time on 02/06/2024 was 44 minutes which was spent in the activities documented in the note. This includes time spent prior to the visit and after the visit in direct care of the patient. This time does not include time spent in any separately reportable services. Start Date: 12/14/2023 Start weight: 203 lb Weight today: 197 lb Total weight loss: - 6 lb Wt Readings from Last 3 Encounters: 02/06/24 89.5 kg (197 lb 4.8 oz) 01/17/24 90.9 kg (200 lb 8 oz) 01/10/24 92.2 kg (203 lb 3.2 oz) Patient presents for weight loss education. Today we discussed physical activity facts, barriers and benefits of exercise. We discussed some non-exercise activities and activity recommendations. Last visit goal: Zepbound covered and order picker/assembler to start. Continue tracking daily food. Increased activity. Goal was - MET Goal for next session:Be more active, start back swimming. Be a better listener. Continue to be able to wear expensive suits. Gratefulness: Doing CHIP! TDEE calculated today: Zepbound covered and order picker/assembler to start. Continue tracking daily food. Increased activity. Increase protein in diet. Examples: 1 whole egg and 2 servings of egg whites, protein supplement shakes, Promoboxx core power elite shake has 42 g of protein, the plan core power shakes have 26 g of protein, protein bars, protein:ratio yogurt, oikos pro yogur, or oikos triple zero yogurt with a scoop of protein powder, increased meat intake, low fat cottage cheese, collagen peptides-these can sometimes be used as a creamer in your coffee The 5 A's framework was used throughout the session BMI Follow-up includes: nutrition counseling, exercise counseling, and education provided Assessment & Plan (01/17/2024 11:05 AM ANGIOGRAPHY TECHNOLOGIST): Chip 04 Patient has tried multiple different weight loss medications in the past including Wegovy and Mounjaro. States he has been on medications with success but when he comes off he gains weight back. He was most recently on Wegovy 0.25 mg once weekly. Denies side effects. States that he would like to restart medication but has been paying [id number] and heard that he can get medication from vial for much cheaper. After [facility], did speak with staff who was able to give patient info about compound pharmacy. He has since been able to get the medication and has started his 1st injection back on semaglutide. Patient with concerns today about taking a c ompounded substance and is now not wanting to do that instead is interested in getting Zepbound directly from [employer] website since he states cost will be the same. He plans to look into this further prior to our next apt. Wochading on getting Zepbound ordered and approved - he did talk with Em today to work on approval paperwork. Visit began at 1015 Visit ended at 1048 Pre/post charting time - 10 minutes My total encounter time on 01/17/2024 was 43 minutes which was spent in the activities documented in the note. This includes time spent prior to the visit and after the visit in direct care of the patient. This time does not include time spent in any separately reportable services. Start Date: 12/14/2023 Start weight: 203 lb Weight today: 200 lb Total weight loss: - 3 lb Wt Readings from Last 3 Encounters: 01/17/24 90.9 kg (200 lb 8 oz) 01/10/24 92.2 kg (203 lb 3.2 oz) 01/03/24 93 kg (205 lb 1.6 oz) Patient presents for weight loss education. Today we discussed temptation, what sugar does to the body, creating an environment of health (refrigerator, pantry, kitchen, bedroom), grocery shopping, natural vs processed vs organic foods, economics of healthy eating, veggies & fruit, protein, fish & seafood, meats, poultry, legumes, dairy, nuts/seeds, starches, unhealthy fats, healthier fats, and the importance of water. Last visit goal: Get back on track this week after the holiday. Start tracking calorie deficit in [employer] and look into getting back into tennis at [employer] to get active again. Goal was - MET Goal for next session:Zepbound covered and order picker/assembler to start. Continue tracking daily food. Increased activity. TDEE calculated today: Total Daily Calories: 1500 calories/day Total Daily Protein: 150 grams protein/day Increase protein in diet. Examples: 1 whole egg and 2 servings of egg whites, protein supplement shakes, [facility] core power elite shake has 42 g of protein, the plan core power shakes have 26 g of protein, protein bars, protein:ratio yogurt, oikos pro yogur, or oikos triple zero yogurt with a scoop of protein powder, increased meat intake, low fat cottage cheese, collagen peptides-these can sometimes be used as a creamer in your coffee BMI Follow-up includes: nutrition counseling, exercise counseling, and education provided The 5 A's framework was used throughout the session Assessment & Plan (01/10/2024 12:20 PM ANGIOGRAPHY TECHNOLOGIST): Chip 03 Patient has tried multiple different weight loss medications in the past including Wegovy and Mounjaro. States he has been on medications with success but when he comes off he gains weight back. He was most recently on Wegovy 0.25 mg once weekly. Denies side effects. States that he would like to restart medication but has been paying [id number] and heard that he can get medication from [facility] for much cheaper. After [facility], did speak with staff who was able to give patient info about compound pharmacy. He has since been able to get the medication and has started his 1st injection back on semaglutide. Patient with concerns today about taking a c ompounded substance and is now not wanting to do that instead is interested in getting Zepbound directly from [employer] website since he states cost will be the same. He plans to look into this further prior to our next apt. Today, patient interested in sending Zepbound through [employer] website. Will order script today and did discuss with Em on getting that approved. Visit began at 1107 Visit ended at 1144 Pre/post charting time - 10 minutes My total encounter time on 01/10/2024 was 47 minutes which was spent in the activities documented in the note. This includes time spent prior to the visit and after the visit in direct care of the patient. This time does not include time spent in any separately reportable services. Start Date: 12/14/2023 Start weight: 203 lb Weight today: 203 lb Total weight loss: 0 lb Wt Readings from Last 3 Encounters: 01/10/24 92.2 kg (203 lb 3.2 oz) 01/03/24 93 kg (205 lb 1.6 oz) 12/14/23 92.2 kg (203 lb 4.8 oz) Patient presents for weight loss education. Today we discussed basic habits of health, primary & secondary choices, structural tension, how habits are formed, cravings, and stopping bad habit patterns. Last visit goal: Enjoy Thanksgiving with his 4 daughters in town! Work on tracking food on [employer] Goal was - NOT MET Goal for next session:Get back on track this week after the holiday. Start tracking calorie deficit in [employer] and look into getting back into tennis at [employer] to get active again. Gratefulness: Daughters for the holiday and family time! TDEE calculated today: Total Daily Calories: 1500 calories/day Total Daily Protein: 150 grams protein/day Increase protein in diet. Examples: 1 whole egg and 2 servings of egg whites, protein supplement shakes, [employer] core power elite shake has 42 g of protein, the plan core power shakes have 26 g of protein, protein bars, protein:ratio yogurt, oikos pro yogur, or oikos triple zero yogurt with a scoop of protein powder, increased meat intake, low fat cottage cheese, collagen peptides-these can sometimes be used as a creamer in your coffee The 5 A's framework was used throughout the session BMI Follow-up includes: nutrition counseling, exercise counseling, and education provided. Assessment & Plan (01/03/2024 10:31 AM ANGIOGRAPHY TECHNOLOGIST): Chip 02 Patient has tried multiple different weight loss medications in the past including Wegovy and Mounjaro. States he has been on medications with success but when he comes off he gains weight back. He was most recently on Wegovy 0.25 mg once weekly. Denies side effects. States that he would like to restart medication but has been paying [id number] and heard that he can get medication from [facility] for much cheaper. After [facility], did speak with staff who was able to give patient info about compound pharmacy. He has since been able to get the medication and has started his 1st injection back on semaglutide. Patient with concerns today about taking a c ompounded substance and is now not wanting to do that instead is interested in getting Zepbound directly from [employer] website since he states cost will be the same. He plans to look into this further prior to our next apt. Visit began at 0902 Visit ended at 0945 Pre/post charting time -10 minutes My total encounter time on 01/03/2024 was 53 minutes which was spent in the activities documented in the note. This includes time spent prior to the visit and after the visit in direct care of the patient. This time does not include time spent in any separately reportable services. Visit began at 1221 Visit ended at 1315 Weight today: 203 lb Total weight loss: 205 lb Wt Readings from Last 3 Encounters: 01/03/24 93 kg (205 lb 1.6 oz) 12/14/23 92.2 kg (203 lb 4.8 oz) 10/31/23 91.8 kg (202 lb 4.8 oz) Pt presents for weight loss education. Today we reviewed their health assessment and I gave suggestions and encouragement to improve. We discussed eating healthy basics- what is a calorie, metabolism, glucose/insulin response to eating, low glycemic eating, create your plate, non-starchy veggies, grains/starches, proteins/dairy, and foods to limit. TDEE calculated today: Total Daily Calories: 1500 calories/day Total Daily Protein: 150 grams protein/day Increase protein in diet. Examples: 1 whole egg and 2 servings of egg whites, protein supplement shakes, Promoboxx core power elite shake has 42 g of protein, the plan core power shakes have 26 g of protein, protein bars, protein:ratio yogurt, oikos pro yogur, or oikos triple zero yogurt with a scoop of protein powder, increased meat intake, low fat cottage cheese, collagen peptides-these can sometimes be used as a creamer in your coffee Last visit goal: Work on high protein, well balanced meals using the plate method Goal was - MET Goal for next session:Enjoy Thanksgiving with his 4 daughters in town! Work on tracking food on [employer] Gratefulness: His family! The 5 A's framework was used throughout the session BMI Follow-up includes:nutrition counseling, exercise counseling, and education provided Assessment & Plan (12/14/2023 3:35 PM ANGIOGRAPHY TECHNOLOGIST): Images from the original note were not included. Chip 01 Patient has tried multiple different weight loss medications in the past including Wegovy and Mounjaro. States he has been on medications with success but when he comes off he gains weight back. He was most recently on Wegovy 0.25 mg Semaglutide once weekly. Denies side effects. States that he would like to restart medication but has been paying [id number] and heard that he can get medication from vial for much cheaper. Will have staff call patient to discuss compound cost. Visit began at 1221 Visit ended at 1315 Pre/post charting time - 5 minutes My total encounter time on 12/14/2023 was 61 minutes which was spent in the activities documented in the note. This includes time spent prior to the visit and after the visit in direct care of the patient. This time does not include time spent in any separately reportable services. Start Date: 12/14/2023 Start weight: 203 lb Pt presents for weight loss education. Today we discussed obesity statistics, causes, changes in food production, complications, brief goal setting, motivation, and created a structural tension chart. We discussed the BASIC lifestyle and they were given mealplans and snack ideas to use until their next visit. Their why : To be healthy, live long, feel lean & have confidence Motivation Score: 10 Goal for next session: Work on high protein, well balanced meals using the plate method Increase protein in diet. Examples: 1 whole egg and 2 servings of egg whites, protein supplement shakes, Promoboxx core power elite shake has 42 g of protein, the plan core power shakes have 26 g of protein, protein bars, protein:ratio yogurt, oikos pro yogur, or oikos triple zero yogurt with a scoop of protein powder, increased meat intake, low fat cottage cheese, collagen peptides-these can sometimes be used as a creamer in your coffee The 5 A's framework was used throughout the session BMI Follow-up includes: nutrition counseling, exercise counseling, and education provided Annual physical exam 12/21/2020 Gastroesophageal reflux disease without esophagi tis 10/04/2019 Dysphagia 10/04/2019 Odynophagia 10/04/2019 Foreign body sensation in throat 09/23/2019 H/O herpes genitalis 06/28/2019 Benign hypertensive kidney d isease with chronic kidney disease stage I through stage IV, or unspecified(403.10) 01/15/2019 MVP (mitral valve prolapse) 12/21/2018 Chronic kidney disease (CKD), stage III (moderat e) 06/20/2018 Assessment & Plan (06/20/2018 12:45 PM CDT): Creat 1.6 US neg Urine neg Follow Push fluids Essential hypertension 11/05/2015 Assessment & Plan (06/20/2018 12:39 PM CDT): Hypertension is improving with lifestyle modifications. Continue current treatment regimen. Blood pressure will be reassessed at the next regular appointment. Follow bp, DIET EXERCISE, home checks Hyperlipemia 11/05/2015 Assessment & Plan (06/20/2018 12:39 PM CDT): Lipid abnormalities are improving with treatment. Nutritional counseling was provided. Lipids will be reassessed in 6 months. ED (erectile dysfunction) 11/05/2015 OA (osteoarthritis) 11/05/2015 Assessment & Plan (06/20/2018 12:44 PM CDT): Tylenol 1 gr q 6 prn, No NSAIDS Resolved Problems Problem Noted Date Diagnosed Date Resolved Date Throat pain 05/01/2020 06/02/2022 Immunizations Name Administration Dates Next Due COVID-19 mRNA ([employer]) 0.3 m L (30 mcg) vaccine (12 years and up) 10/31/2023 Influenza, Quadrivalent, Jing l Culture-based MDCK, Preservative Free, Antibiotic Free, Intramuscular 11/24/2019,11/15/2018 Influenza, Quadrivalent, Spl it, Preservative Free, Intramuscular 11/14/2022,11/18/2021,11/04/2020 Influenza, Trivalent, Adjuva nted, Intramuscular 10/31/2023 Influenza, Trivalent, Preser vative Free, Intramuscular 01/09/2015 Influenza, Unspecified 11/27/2021,11/20/2020, Pfizer SARS-CoV-2 Monovalent Vaccination (12+ Yrs) PURPLE 11/18/2021,12/23/2020,05/13/2020,04/15 Sars-cov-2 Covid-19 Mrna, Bi valent, Original/tuckerron Ba.1 11/14/2022 Tdap 03/25/2010 Social History Tobacco Use Types Packs/Day Years Used Date Smoking Tobacco: Never Smokeless Tobacco: Never Tobacco Cessation:Counseling Given: Not Answered Alcohol Use Standard Drinks/Week Comments Not Currently 0 (1 standard drink = 0.6 oz pur e alcohol) AUDIT-C Answer Date Recorded Q1: How often do you have a drink containing alcohol? Never 12/14/2023 Q2: How many drinks containi ng alcohol do you have on a typical day when you are drinking? Patient does not drink Q3: How often do you have si x or more drinks on one occasion? Never 12/14/2023 PHQ-2 Answer Date Recorded PHQ-2 Total Score (If total score is 3 or more points, staff should administer the PHQ-9) 0 03/13/2024 Personal Safety Answer Date Recorded Have you ever been in or are you currently in a harmful physical or emotional relationship or is someone making you feel afraid or unsafe? Denies 08/25/2023 Sex and Gender Information Value Date Recorded Sex Assigned at Not on file Legal Sex Male 9:42 AM ANGIOGRAPHY TECHNOLOGIST Gender Identity Not on file Sexual Orientation Not on file Last Filed Vital Signs Vital Sign Reading Time Taken Comments Blood Pressure 114/78 03/13/2024 2:36 PM ANGIOGRAPHY TECHNOLOGIST Pulse 64 03/13/2024 2:36 PM ANGIOGRAPHY TECHNOLOGIST Temperature 36.7 C (98.1 F) 03/13/2024 2:36 PM ANGIOGRAPHY TECHNOLOGIST Respiratory Rate 16 02/19/2024 11:01 AM ANGIOGRAPHY TECHNOLOGIST Oxygen Saturation 98% 03/13/2024 2:36 PM ANGIOGRAPHY TECHNOLOGIST Inhaled Oxygen Concentration - - Weight 87.8 kg (193 lb 9.6 oz) 03/13/2024 2:36 P M ANGIOGRAPHY TECHNOLOGIST Height 172.7 cm (5' 8 ) 03/13/2024 2:36 PM ANGIOGRAPHY TECHNOLOGIST Body Mass Index 29.44 03/13/2024 2:36 PM ANGIOGRAPHY TECHNOLOGIST Plan of Treatment Not on file Procedures Procedure Name Priority Date/Time Associated Diagnosis Comments DIFFERENTIAL AUTO Routine 03/13/2024 9:2 5 AM ANGIOGRAPHY TECHNOLOGIST Essential hypertension Mixed hyperlipidemia Stage 3a chronic kidney disease (HCC) CBC WITH AUTO DIFFERENTIAL Routine 03/13/2024 9:25 AM ANGIOGRAPHY TECHNOLOGIST Essential hypertension Mixed hyperlipidemia Stage 3a chronic kidney disease (HCC) EGFR Routine 03/08/2024 12:19 PM ANGIOGRAPHY TECHNOLOGIST Essential hypertension COMPREHENSIVE METABOLIC PANEL Routine 03/08/2024 12:19 PM ANGIOGRAPHY TECHNOLOGIST Essential hypertension LIPID PANEL Routine 03/08/2024 12:19 PM ANGIOGRAPHY TECHNOLOGIST Essential hypertension Mixed hyperlipidemia PSA SCREEN Routine 12/22/2023 2:26 PM ANGIOGRAPHY TECHNOLOGIST XR KUB Schedule Routine, Read Routine (OP Routine) 12/18/2023 1:43 PM ANGIOGRAPHY TECHNOLOGIST Calculus of kidney HEPATITIS PANEL, ACUTE Routine 06/24/2019 8:19 AM CDT Hypertension, unspecified type Chronic kidney disease (CKD), stage III (moderate) (CMS/HCC) Pure hypercholesterolemia Exposure to potentially hazardous body fluids COLONOSCOPY Routine 01/19/2018 from Last 3 Months or Most Recently Relevant to Health Maintenance Results * (ABNORMAL) Differential, auto (03/13/2024 9:25 AM ANGIOGRAPHY TECHNOLOGIST) Pathologist [facility] Neutrophil abs 1.2(L) 1.5 - 6.5 K/cumm Imm gran abs 0.0 0.0 - 0.1 K/cumm [facility] Lymphocyte abs 2.6 0.8 - 3.3 K/cumm [facility] Monocyte abs 0.5 0.2 - 0.8 K/cumm [facility] Eosinophil abs 0.1 0.0 - 0.5 K/cumm [facility] Basophil abs 0.0 0.0 - 0.1 K/cumm [facility] Neutrophil pct 27.6 % [facility] Comment: Interpretive Data Percent cell count reference ranges are not reported, since discordance with absolute values may lead to misinterpretation of CBC data. Current Interpretive Data was last revised on 2017. Imm gran pct 0.0 % [facility] Comment: Interpretive Data Percent cell count reference ranges are not reported, since discordance with absolute values may lead to misinterpretation of CBC data. Current Interpretive Data was last revised on 2017. Lymphocyte pct 58.3 % [facility] Comment: Interpretive Data Percent cell count reference ranges are not reported, since discordance with absolute values may lead to misinterpretation of CBC data. Current Interpretive Data was last revised on 2017. Monocyte pct 12.1 % [facility] Comment: Interpretive Data Percent cell count reference ranges are not reported, since discordance with absolute values may lead to misinterpretation of CBC data. Current Interpretive Data was last revised on 2017. Eosinophil pct 1.3 % [facility] Comment: Interpretive Data Percent cell count reference ranges are not reported, since discordance with absolute values may lead to misinterpretation of CBC data. Current Interpretive Data was last revised on 2017. Basophil pct 0.7 % [facility] Comment: Interpretive Data Percent cell count reference ranges are not reported, since discordance with absolute values may lead to misinterpretation of CBC data. Current Interpretive Data was last revised on 2017. Blood 03/13/2024 9:25 AM ANGIOGRAPHY TECHNOLOGIST 03/13/2024 9:40 AM ANGIOGRAPHY TECHNOLOGIST Loco Jackson MD LAB BLOOD ORDERABLES Final Re sult Performing Organization Address [facility] Co de Phone Number [address] [place] [address] * CBC with auto differential (03/13/2024 9:25 AM ANGIOGRAPHY TECHNOLOGIST) WBC 4.5 3.8 - 9.9 K/cumm Hgb 14.6 13.0 - 17.5 g/dL [facility] Hct 44.0 38.9 - 50.3 % [facility] Plt 183 150 - 400 K/cumm [facility] MPV 10.8 9.1 - 12.3 fL [facility] RBC 4.71 4.30 - 5.80 M/cumm [facility] MCV 93.4 81.3 - 96.4 fL [facility] MCH 31.0 27.1 - 33.3 pg [facility] MCHC 33.2 32.3 - 35.7 g/dL [facility] RDW CV 13.0 11.1 - 14.9 % [facility] RDW SD 44.8 35.7 - 48.1 fL [facility] NRBC abs 0.00 0.00 - 0.01 K/cumm [facility] Blood 03/13/2024 9:25 AM ANGIOGRAPHY TECHNOLOGIST 03/13/2024 9:40 AM ANGIOGRAPHY TECHNOLOGIST Loco Jackson MD LAB BLOOD ORDERABLES Final Re sult Performing Organization Address [facility] Co de Phone Number [address] [place] [address] * (ABNORMAL) eGFR (03/08/2024 12:19 PM ANGIOGRAPHY TECHNOLOGIST) eGFR 56(L) >=60 mL/min/1. 73 m2 Comment: Interpretive Data Reference Interval Normal >/= 90 mL/min/1.73m2 Mildly decreased* 60 - 89 mL/min/1.73m2 Mildly to moderately decreased 45 - 59 mL/min/1.73m2 Moderately to severely decreased 30 - 44 mL/min/1.73m2 Severely decreased 15 - 29 mL/min/1.73m2 Kidney Failure < 15 mL/min/1.73m2 *Relative to young adult level Estimated glomerular filtration rate is determined by the 2020 CKD-EPI equation recommended by the National Kidney Foundation (A Unifying Approach to GFR Estimation: Recommendations of the NKF-ASK Task Force on Reassessing the Inclusion of Race in Diagnosing Kidney Disease, JASN 2020). The CKD-EPI equation should not be used for patients with unstable renal function and has not been validated in children and those over 70. Current interpretive data was last reviewed 2020. Testing performed by: [facility], [address] [place] [address]., [address] Blood 03/08/2024 12:1 9 PM ANGIOGRAPHY TECHNOLOGIST 03/08/2024 1:38 PM ANGIOGRAPHY TECHNOLOGIST us Loco Jackson MD LAB BLOOD ORDERABLES Final Re sult [facility] [address] [facility] Department [place] [address] * Lipid panel (03/08/2024 12:19 PM ANGIOGRAPHY TECHNOLOGIST) Cholesterol 154 30 - 199 mg/dL Comment: Interpretive Data Ages < or = 19 years Acceptable: <170 mg/dL Borderline high: 170-199 mg/dL High: >or= 200 mg/dL Ages > or = 20 years Desirable: <200 mg/dL Borderline high: 200-239 mg/dL High: >or= 240 mg/dL Literature References: 1. Expert Panel on Integrated Guidelines for Cardiovascular Health and Risk Reduction in Children and Adolescents. Pediatrics 2011;128:S213 2. NCEP Expert Panel. Circulation 2004;110:227 Current Interpretive Data was last revised on 2017. Testing performed by: [address] [address] Triglycerides 77 <=149 mg/dL [facility] Comment: Interpretive Data Ages < or = 9 years Acceptable: <75 mg/dL Borderline high: 75-99 mg/dL High: >or= 100 mg/dL Ages 10 to 20 years Acceptable: <90 mg/dL Borderline high: 90-129 mg/dL High: >or= 130 mg/dL Ages > or = 20 years Desirable: <150 mg/dL Borderline high: 150-199 mg/dL High: 200-499 mg/dL Very high: >or= 499 mg/dL Literature References: 1. Expert Panel on Integrated Guidelines for Cardiovascular Health and Risk Reduction in Children and Adolescents. Pediatrics 2011;128:S213 2. NCEP Expert Panel. Circulation 2004;110:227 Current Interpretive Data was last revised on 2017. Testing performed by: [address] [address] HDL 53 >=40 mg/dL [facility] Comment: Interpretive Data Ages < or = 19 years Acceptable: >45 mg/dL Borderline low: 40-45 mg/dL Low: <40 mg/dL Ages > or = 20 years Desirable: >or= 60 mg/dL Low: <40 mg/dL Literature References: 1. Expert Panel on Integrated Guidelines for Cardiovascular Health and Risk Reduction in Children and Adolescents. Pediatrics 2011;128:S213 2. NCEP Expert Panel. Circulation 2004;110:227 Current Interpretive Data was last revised on 2017. Testing performed by: [address] [address] LDL, calculated 86 <=129 mg/dL [facility] Comment: Interpretive Data Ages < or = 19 years Acceptable: <110 mg/dL Borderline high: 110-129 mg/dL High: >or= 130 mg/dL Ages > or = 20 years Optimal: <100 mg/dL Near optimal: 100-129 mg/dL Borderline high: 130-159 mg/dL High: >160 mg/dL Calculated using the Christine LDL-C estimating equation. This equation was implemented on 2023. Prior to this date LDL-C was estimated using the Friedewald equation. Literature References: 1. Expert Panel on Integrated Guidelines for Cardiovascular Health and Risk Reduction in Children and Adolescents. Pediatrics 2011;128:S213 2. NCEP Expert Panel. Circulation 2004;110:227 3. Emmett M et al. MARIELA Cardiol. 2020 June 06;5(5):540-548. doi: 10.1001/jamacardio.2020.0013 Current Interpretive Data was last revised on 2023. Testing performed by: [address] [address] Non-HDL Cholesterol 101 mg/dL [facility] Comment: Interpretive Data Ages < or = 19 years Acceptable: <120 mg/dL Borderline high: 120-144 mg/dL High: >145 mg/dL Ages > or = 20 years When triglycerides are >200 mg/dL, Non-HDL cholesterol is a secondary target of therapy with treatment goals that are 30 mg/dL greater than the LDL cholesterol target. Literature References: 1. Expert Panel on Integrated Guidelines for Cardiovascular Health and Risk Reduction in Children and Adolescents. Pediatrics 2011;128:S213 2. NCEP Expert Panel. Circulation 2004;110:227 Current Interpretive Data was last revised on 2017. Testing performed by: [address] [address] Chol/HDL ratio 3 [facility] Comment:Testing performed by : [address] [address] Blood 03/08/2024 12:1 9 PM ANGIOGRAPHY TECHNOLOGIST 03/08/2024 1:38 PM ANGIOGRAPHY TECHNOLOGIST Narrative [facility] - 03/08/2024 2:12 PM ANGIOGRAPHY TECHNOLOGIST Has the patient been fasting for 8 hours or more?->Yes us Loco Jackson MD LAB BLOOD ORDERABLES Final Re sult [facility] [address] [facility] Department [place] [address] * (ABNORMAL) Comprehensive metabolic panel (03/08/2024 12:19 PM ANGIOGRAPHY TECHNOLOGIST) [facility] Sodium 139 135 - 145 mmol/L Comment:Testing performed by : [address] [address] Potassium, pl 4.9 3.3 - 4.9 mmol/L [facility] Comment: HEMOLYZED: Hemolysis interferes with the above test. Testing performed by: [address] [address] Chloride 102 97 - 110 mmol/L [facility] Comment:Testing performed by : [address], [place]., [address] CO2 22 22 - 32 mmol/L [facility] Comment:Testing performed by : [address], [place]., [address] Anion gap 15 2 - 15 mmol/L [facility] Comment:Testing performed by : [address] [address] BUN 16 6 - 25 mg/dL [facility] Comment:Testing performed by : [address], [place]., [address] Creatinine 1.40(H) 0.80 - 1.30 mg/dL [facility] Comment:Testing performed by : [address] [address] Glucose 87 70 - 199 mg/dL [facility] Comment: Interpretive Data Fasting glucose >/= 126 mg/dl is diagnostic for diabetes. Fasting is defined as no caloric intake for at least 8 hours. Fasting glucose between 100 mg/dl to 125 mg/dl is diagnostic of prediabetes. In a patient with classic symptoms of hyperglycemia or hyperglycemic crisis, a random glucose >/= 200 mg/dl is diagnostic for diabetes. In the absence of unequivocal hyperglycemia, results should be confirmed by repeat testing. The classification and Diagnosis of Diabetes Diabetes Care 202; 46: S19-S40. Current interpretive data was last revised 2022. Testing performed by: [address] [address] Calcium 9.8 8.5 - 10.3 mg/dL [facility] Comment:Testing performed by : [address] [address] Bilirubin, total 0.8 0.1 - 1.2 mg/dL [facility] Comment:Testing performed by : [address] [address] Protein, pl 7.6 6.5 - 8.5 g/dL [facility] Comment:Testing performed by : [address] [address] Albumin 4.5 3.5 - 5.0 g/dL [facility] Comment:Testing performed by : [address], [address] Alk phos 33(L) 40 - 130 Units/L [facility] Comment:Testing performed by : [address], [address] ALT 56(H) 7 - 55 Units/L [facility] Comment: HEMOLYZED: Hemolysis interferes with the above test. Testing performed by: [address], [address] AST 32 10 - 50 Units/L [facility] Comment: HEMOLYZED: Hemolysis interferes with the above test. Testing performed by: [address], [address] Blood 03/08/2024 12:1 9 PM ANGIOGRAPHY TECHNOLOGIST 03/08/2024 1:38 PM ANGIOGRAPHY TECHNOLOGIST us Loco Jackson MD LAB BLOOD ORDERABLES Final Re sult [facility] [address] [facility] Department [place] [address] * PSA screen (12/22/2023 2:26 PM ANGIOGRAPHY TECHNOLOGIST) PSA-Total 3.91 <=5.40 ng/mL Comment: Interpretive Data AGE SEX REFERENCE INTERVAL 0 minutes-150 years Female None 0 minutes-49 years Male None 50-59 years Male 0-3.90 60-69 years Male 0-5.40 70-79 years Male 0-6.20 80-150 years Male 0-6.20 The Abhishek PSA Total assay procedure was used. Results from different manufacturers or methods may not be comparable. Serial testing should be performed using the same method. Current interpretive data last revised 21. Testing performed by: [address], [address] Blood 12/22/2023 2:26 PM ANGIOGRAPHY TECHNOLOGIST 12/22/2023 3:01 PM ANGIOGRAPHY TECHNOLOGIST us Dharmesh Phillips MD LAB BLOOD ORDERABLES Final Re sult [facility] [address] [facility] Department [place] [address] * XR KUB (12/18/2023 1:43 PM ANGIOGRAPHY TECHNOLOGIST) Anatomical Region Laterality Modality Body, Abdomen N/A Computed Radiogr aphy 12/21/2023 6:24 PM ANGIOGRAPHY TECHNOLOGIST Narrative 12/21/2023 6:26 PM ANGIOGRAPHY TECHNOLOGIST EXAM DESCRIPTION: XR KUB REASON FOR STUDY: n20.0 Pt states this is a follow up on kidney stones dx. TECHNIQUE: Single radiographic view of the abdomen. COMPARISON: Ultrasound 09/28/2022 FINDINGS: Nonobstructive bowel gas pattern. No definite nephrolithiasis by plain film. Prominent marginal osteophyte formation of the visualized lower thoracic and upper lumbar spine with moderate change more inferiorly. Mild osteoarthritis right hip [id number] of the left. No acute osseous findings. IMPRESSION: No definite nephrolithiasis by plain film. Nonobstructive bowel gas pattern. Moderate spondylosis thoracic and lumbar spine. THIS IS AN ELECTRONICALLY VERIFIED FINAL REPORT 12/21/2023 6:26 PM - Electronically signed by Bernardino Pierce M.D. MJ: LOPEZ Report ID: [id number] Reading Location: [id number] Procedure Note Bernardino Pierce MD - 12/21/2023 EXAM DESCRIPTION: XR KUB REASON FOR STUDY: n20.0 Pt states this is a follow up on kidney stones dx. TECHNIQUE: Single radiographic view of the abdomen. COMPARISON: Ultrasound 09/28/2022 FINDINGS: Nonobstructive bowel gas pattern. No definite nephrolithiasisby plain film. Prominent marginal osteophyte formation of the visualizedlower thoracic and upper lumbar spine with moderate change more inferiorly.Mild osteoarthritis right hip [id number]-[id number]-[id number] of the left. No acute osseous findings. IMPRESSION: No definite nephrolithiasis by plain film. Nonobstructive bowel gas pattern. Moderate spondylosis thoracic and lumbar spine. THIS IS AN ELECTRONICALLY VERIFIED FINAL REPORT 12/21/2023 6:26 PM - Electronically signed by Bernardino Pierce M.D. MJ: LOPEZ Report ID: [id number] Reading Location: [place] [address] us Dharmesh Phillips MD IMG XR PROCEDURES Final Resul t * (ABNORMAL) Hepatitis panel, acute (06/24/2019 8:19 AM CDT) HepBsAg NONREACT NONREACTIVE [facility] Comment: Siemens CentaurXP using DAVI (chemiluminescent immunoassay) technology. NONREACTIVE: IgM antibodies to Hepatitis B Surface antigen not detected. REACTIVE: IgM antibodies to Hepatitis B Surface antigen detected. Reactive results will be confirmed by neutralization testing. HBsAb qn 166.37 mIU/mL [facility] Comment: Siemens CentaurXP using DAVI (chemiluminescent immunoassay) technology. 9.99 IU/L or less.....NONREACTIVE: IgM antibodies to Hepatitis B Surface antibody are not detected. 10.00 IU/L or greater..REACTIVE: IgM antibodies to Hepatitis B Surface antibody are detected. Hep B core IgM NONREACT NONREACTIVE [facility] Comment: Siemens CentaurXP using DAVI (chemiluminescent immunoassay) technology. NONREACTIVE: IgM antibodies to Hepatitis B Core antigen not detected. EQUIVOCAL: IgM antibodies to Hepatitis B Core antigen may or may not be present. Obtain a new specimen and retest. REACTIVE: IgM antibodies to Hepatitis B Core antigen detected. Hep A IgM NONREACT NONREACTIVE [facility] Comment: Siemens CentaurXP using DAVI (chemiluminescent immunoassay) technology. NONREACTIVE: IgM antibodies to Hepatitis A not detected. This does not exclude possibility of exposure to Hepatitis A or early acute infection. EQUIVOCAL:IgM antibodies to Hepatitis A may or may not be present. Suggest recollection and retest. REACTIVE: Antibodies to Hepatitis A detected. Hep C Ab REACTIVE(A) NONREACTIVE [facility] Comment: Sample to be confirmed by HCV quantitative NAAT. Siemens PECO PalletaurXP using DAVI (chemiluminescent immunoassay) technology. NONREACTIVE: Antibodies to Hepatitis C not detected. This does not exclude early acute Hepatitis C infection, possibility of exposure to Hepatitis C, antibodies below detection limit, or to lack of antibody reactivity to the antigen used in this assay. EQUIVOCAL: Antibodies to Hepatitis C may or may not be present. Sample to be confirmed by real-time PCR method. REACTIVE: Antibodies to Hepatitis C detected.Sample to be confirmed by real-time PCR method. Blood specimen (specimen) 06/24/2019 8:19 AM CDT 06/24/2019 8:24 AM CDT Narrative Resulting Agency Comment CLI Loco Jackson MD LAB MICROBIOLOGY - GENERAL OR DERABLES Final Result [facility] [address] [place] [address], [facility] [phone] * Colonoscopy (01/19/2018) Anatomical Region Laterality Modality Other Historical Provider ENDOSCOPY PROCEDURES Sarah l Result from Last 3 Months or Most Recently Relevant to Health Maintenance Insurance [facility] Care Teams [employer]er Relationship Specialty Start Date End Date Loco Jackson MD PCP - General 06/18/18
--- OUTSIDE RECORDS SUMMARY | 2024-03-16 12:41 | XMS_ITS | Clinical Summary ---
Author Organization [facility] Address [address] [place] [address] Care Team Providers Care Power Transformer Assembler Name Role Phone Loco Jackson MD Primary Care Provider [phone] Allergies No known active allergies Medications sildenafiL [...] 12/14/2023 Assessment & Plan (02/19/2024 12:18 PM RETAIL MERCHANDISING SPECIALIST): Chip 6 Continue Zepbound 2.5 mg injection [...] was - NOT MET. Goal for next session:Torsten sneakers [place] [facility] [place] [facility]/talk on the phone. Gratefulness: New year! Staying healthy, continue weight loss. TDEE calculated today: Total Daily Calories: 1500 calories/day Total Daily Protein: 150 grams protein/day Increase protein in diet. Examples: 1 whole egg and 2 servings of egg whites, protein supplement shakes, Kynogon core power elite shake has 42 g [...] provided Assessment & Plan (02/06/2024 2:52 PM RETAIL MERCHANDISING SPECIALIST): Chip 5 Continue Zepbound 2.5 mg injection [...] recommendations. 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 Continue tracking daily food. Increased activity. Goal was - MET Goal for next session:Be more active, start back swimming. Be a better listener. Continue to be able to wear expensive suits. Gratefulness: Doing CHIP! TDEE calculated today: Zepbound covered and pick and shovel worker to start. Continue tracking daily food. Increased activity. Increase protein in diet. Examples: 1 whole egg and 2 servings of egg whites, protein supplement shakes, Kynogon core power elite shake has 42 g [...] provided Assessment & Plan (01/17/2024 11:05 AM RETAIL MERCHANDISING SPECIALIST): Chip 04 Patient has tried multiple different weight loss medications in the past including Wegovy and Mounjaro. States he has been on medications with success but when he comes off he gains weight back. He was most recently on Wegovy 0.25 mg once weekly. Denies side effects. States that he would like to restart medication but has been paying [id number] and heard that he can get medication [...] is interested in getting Zepbound directly from [employer] website since he states cost will be the same. He plans to look into this further prior to our next apt. Rebeccaing on getting Zepbound ordered and approved - [...] look into getting back into tennis at [employer] to get active again. Goal was - MET Goal for next session:Zepbound covered and pick and shovel worker to start. Continue tracking daily food. Increased [...] session Assessment & Plan (01/10/2024 12:20 PM RETAIL MERCHANDISING SPECIALIST): Chip 03 Patient has tried multiple different weight loss medications in the past including Wegovy and Mounjaro. States he has been on medications with success but when he comes off he gains weight back. He was most recently on Wegovy 0.25 mg once weekly. Denies side effects. States that he would like to restart medication but has been paying [id number] and heard that he can get medication [...] is interested in getting Zepbound directly from [employer] website since he states cost will be the same. He plans to look into this further prior to our next apt. Today, patient interested in sending Zepbound through [employer] website. Will order script today and did [...] in town! Work on tracking food on [employer] Goal was - NOT MET Goal for next session:Get back on track this week after the holiday. Start tracking calorie deficit in [place] [employer]ep[place] and look into getting back into tennis at [employer] to get active again. Gratefulness: Daughters for the holiday and family time! TDEE calculated today: Total Daily Calories: 1500 calories/day Total Daily Protein: 150 grams protein/day Increase protein in diet. Examples: 1 whole egg and 2 servings of egg whites, protein supplement shakes, Kynogon core power elite shake has 42 g [...] provided. Assessment & Plan (01/03/2024 10:31 AM RETAIL MERCHANDISING SPECIALIST): Chip 02 Patient has tried multiple different weight loss medications in the past including Wegovy and Mounjaro. States he has been on medications with success but when he comes off he gains weight back. He was most recently on Wegovy 0.25 mg once weekly. Denies side effects. States that he would like to restart medication but has been paying [id number] and heard that he can get medication [...] is interested in getting Zepbound directly from [employer] website since he states cost will be [...] servings of egg whites, protein supplement shakes, Kynogon core power elite shake has 42 g of protein, the [employer] core power shakes have 26 g of [...] in town! [facility] Gratefulness: His family! The 5 A's framework was used throughout the session BMI Follow-up includes:nutrition counseling, exercise counseling, and education provided Assessment & Plan (12/14/2023 3:35 PM RETAIL MERCHANDISING SPECIALIST): Images from the original note were not [...] to restart medication but has been paying [id number] and heard that he can get medication [...] servings of egg whites, protein supplement shakes, Kynogon core power elite shake has 42 g [...] Date Resolved Date Throat pain 05/01/2020 06/02/2022 Encounters Date Type Department Care Team Description 03/13/2024 2:30 PM RETAIL MERCHANDISING SPECIALIST Office Visit [facility] [place] [address] [place] [address] [address] [place] [address] Loco Jackson MD Essential hypertension (Primary Dx); Gastroesophageal reflux disease without esophagitis; Mixed hyperlipidemia; Benign hypertensive kidney disease with chronic kidney disease stage I through stage IV, or unspecified(403.10) 03/13/2024 9:15 AM RETAIL MERCHANDISING SPECIALIST Lab [facility] Lab [facility] [place] [address] Essential hypertension; Mixed hyperlipidemia; Stage 3a chronic kidney disease (HCC) 03/12/2024 Telephone [facility] Medical [facility] at [address] [address] Loco Jackson MD blood work 03/08/2024 11:40 AM RETAIL MERCHANDISING SPECIALIST Lab [facility] ([place] [place] Lab [address] [place] [id number] Essential hypertension; Mixed hyperlipidemia 02/19/2024 11:00 AM RETAIL MERCHANDISING SPECIALIST Office Visit [facility] at [address] [address] Nikky Shelby NP Class 1 obesity with serious comorbidity and body mass index (BMI) of 30.0 to 30.9 in adult, unspecified obesity type (Primary Dx) 02/06/2024 2:00 PM RETAIL MERCHANDISING SPECIALIST Office Visit [facility] at [address] [address] Nikky Shelby NP Class 1 obesity with serious comorbidity and body mass index (BMI) of 30.0 to 30.9 in adult, unspecified obesity type (Primary Dx) 01/17/2024 10:00 AM RETAIL MERCHANDISING SPECIALIST Office Visit [facility] at [address] [address] Nikky Shelby NP Class 1 obesity with serious comorbidity and body mass index (BMI) of 30.0 to 30.9 in adult, unspecified obesity type (Primary Dx) 01/10/2024 11:00 AM RETAIL MERCHANDISING SPECIALIST Office Visit [facility] Family Medicine at [address] [address] Nikky Shelby NP Class 1 obesity with serious comorbidity and body mass index (BMI) of 31.0 to 31.9 in adult, unspecified obesity type (Primary Dx) 01/03/2024 9:00 AM RETAIL MERCHANDISING SPECIALIST Office Visit [facility] Family Medicine at [address] [address] Nikky Shelby NP Class 1 obesity with serious comorbidity and body mass index (BMI) of 31.0 to 31.9 in adult, unspecified obesity type (Primary Dx) 12/22/2023 2:15 PM RETAIL MERCHANDISING SPECIALIST Lab [facility] [place] Lab [address] [place] [address] 12/18/2023 12:45 PM RETAIL MERCHANDISING SPECIALIST - 12/18/2023 11:59 PM RETAIL MERCHANDISING SPECIALIST Hospital Encounter [facility] ([place] [place] Diagnostic Imaging [address] [place] [address] Calculus of kidney Discharge Disposition: Discharge to home or self care from Last 3 Months Immunizations Name Administration Dates Next Due COVID-19 mRNA (Yamisee) 0.3 m L (30 mcg) vaccine (12 years and up) 10/31/2023 Influenza, Quadrivalent, Jing l Culture-based MDCK, Preservative Free, Antibiotic Free, Intramuscular 11/24/2019,11/15/2018 Influenza, Quadrivalent, Spl it, Preservative Free, Intramuscular 11/14/2022,11/18/2021,11/04/2020 Influenza, Trivalent, Adjuva nted, Intramuscular 10/31/2023 Influenza, Trivalent, Preser vative Free, Intramuscular 01/09/2015 Influenza, Unspecified 11/27/2021,11/20/2020, Pfizer SARS-CoV-2 Monovalent Vaccination (12+ Yrs) PURPLE 11/18/2021,12/23/2020,05/13/2020,04/15 Sars-cov-2 Covid-19 Mrna, Bi valent, Original/omicron Ba.1 11/14/2022 Tdap 03/25/2010 Surgical History Surgery Date Site/Laterality Comments APPENDECTOMY COLONOSCOPY 02/07/2008 - 02/05/2009 Medical History Medical History Date Comments HTN (hypertension) HLD (hyperlipidemia) Erectile dysfunction Hepatitis C Mitral valve prolapse Genital herpes Family History Medical History Relation Name Comments Diabetes Brother 1 2 Diabetes Brother 2 6 Diabetes Brother 3 7 Diabetes Brother 4 8 Cancer Father Thekiannas Diabetes Mother Cindi Heart disease Other Hypertension Other Diabetes Sister 1 1 Diabetes Sister 2 3 Diabetes Sister 3 4 Diabetes Sister 4 5 Relation Name Status Comments Brother 1 2 Brother 2 6 Brother 3 7 Brother 4 8 Father Theotis Mother Cindi Other Sister 1 1 Sister 2 3 Sister 3 4 Sister 4 5 Social History Tobacco Use Types Packs/Day Years [...] on file Legal Sex Male 9:42 AM RETAIL MERCHANDISING SPECIALIST Gender Identity Not on file Sexual Orientation Not on file Obstetrics History Last Filed Vital Signs Vital Sign Reading Time Taken Comments Blood Pressure 114/78 03/13/2024 2:36 PM RETAIL MERCHANDISING SPECIALIST Pulse 64 03/13/2024 2:36 PM RETAIL MERCHANDISING SPECIALIST Temperature 36.7 C (98.1 F) 03/13/2024 2:36 PM RETAIL MERCHANDISING SPECIALIST Respiratory Rate 16 02/19/2024 11:01 AM RETAIL MERCHANDISING SPECIALIST Oxygen Saturation 98% 03/13/2024 2:36 PM RETAIL MERCHANDISING SPECIALIST Inhaled Oxygen Concentration - - Weight 87.8 kg (193 lb 9.6 oz) 03/13/2024 2:36 P M RETAIL MERCHANDISING SPECIALIST Height 172.7 cm (5' 8 ) 03/13/2024 2:36 PM RETAIL MERCHANDISING SPECIALIST Body Mass Index 29.44 03/13/2024 2:36 PM RETAIL MERCHANDISING SPECIALIST Plan of Treatment Health Maintenance Due Date Last Done Comments Hepatitis B Screening 1978 Zoster Vaccine (1 of 2) 2008 DTaP/Tdap/Td Vaccine (2 - Td or Tdap) 03/25/2020 03/25/2010 Pneumococcal vaccine 65+ (1 of 1 - PCV) 2023 Fall Risk Assessment 09/12/2024 09/13/2023, 08/19/19 Well Visit 65+ 09/12/2024 09/13/2023, 02/07, 12/28/2021, Additional history exists Depression Screening 03/13/2025 03/13/2024, 09/13/2023, 07/07/2022, Additional history exists Prostate Cancer Screening-PSA 12/21/2025, 09/11/2023, 06/21/2022, Additional history exists Colon Cancer Screening-Colonoscopy 01/20/2028 01/19/2018 Colon Cancer Screening-CT Colonography Discontinued 01/19/2018 Colon Cancer Screening-DNA Stool Discontinued 01/20/20 Colon Cancer Screening-FIT Discontinued 01/19/2018 Colon Cancer Screening-Sigmoidoscopy Discontinued 01/19/2018 Hepatitis C Screening Completed 06/24/2019 , 06/24/2019, 10/28/2015 Covid-19 Vaccine Completed 10/31/2023, 10/2022, 11/14/2022, Additional history exists Influenza Vaccine Completed 10/31/2023, , 11/27/2021, Additional history exists Procedures Procedure Name Priority Date/Time Associated Diagnosis Comments DIFFERENTIAL AUTO Routine 03/13/2024 9:2 5 AM RETAIL MERCHANDISING SPECIALIST Essential hypertension Mixed hyperlipidemia Stage 3a chronic kidney disease (HCC) CBC WITH AUTO DIFFERENTIAL Routine 03/13/2024 9:25 AM RETAIL MERCHANDISING SPECIALIST Essential hypertension Mixed hyperlipidemia Stage 3a chronic kidney disease (HCC) EGFR Routine 03/08/2024 12:19 PM RETAIL MERCHANDISING SPECIALIST Essential hypertension COMPREHENSIVE METABOLIC PANEL Routine 03/08/2024 12:19 PM RETAIL MERCHANDISING SPECIALIST Essential hypertension LIPID PANEL Routine 03/08/2024 12:19 PM RETAIL MERCHANDISING SPECIALIST Essential hypertension Mixed hyperlipidemia PSA SCREEN Routine 12/22/2023 2:26 PM RETAIL MERCHANDISING SPECIALIST XR KUB Schedule Routine, Read Routine (OP Routine) 12/18/2023 1:43 PM RETAIL MERCHANDISING SPECIALIST Calculus of kidney HEPATITIS PANEL, ACUTE Routine 06/24/2019 8:19 AM CDT Hypertension, unspecified type Chronic kidney disease (CKD), stage III (moderate) (CMS/HCC) Pure hypercholesterolemia Exposure to potentially hazardous body fluids COLONOSCOPY Routine 01/19/2018 from Last 3 Months or Most Recently Relevant to Health Maintenance Results * (ABNORMAL) Differential, auto (03/13/2024 9:25 AM RETAIL MERCHANDISING SPECIALIST) Pathologist [facility] Neutrophil abs 1.2(L) 1.5 - 6.5 K/cumm Imm gran abs 0.0 0.0 - 0.1 K/cumm [facility] Lymphocyte abs 2.6 0.8 - 3.3 K/cumm [facility] Monocyte abs 0.5 0.2 - 0.8 K/cumm [facility] Eosinophil abs 0.1 0.0 - 0.5 K/cumm [facility] Basophil abs 0.0 0.0 - 0.1 K/cumm [facility] Neutrophil pct 27.6 % [facility] Comment: Interpretive Data Percent cell count reference ranges are not reported, since discordance with absolute values may lead to misinterpretation of CBC data. Current Interpretive Data was last revised on 2017. Imm gran pct 0.0 % [facility] Comment: Interpretive Data Percent cell count reference ranges are not reported, since discordance with absolute values may lead to misinterpretation of CBC data. Current Interpretive Data was last revised on 2017. Lymphocyte pct 58.3 % [facility] Comment: Interpretive Data Percent cell count reference ranges are not reported, since discordance with absolute values may lead to misinterpretation of CBC data. Current Interpretive Data was last revised on 2017. Monocyte pct 12.1 % [facility] Comment: Interpretive Data Percent cell count reference ranges are not reported, since discordance with absolute values may lead to misinterpretation of CBC data. Current Interpretive Data was last revised on 2017. Eosinophil pct 1.3 % [facility] Comment: Interpretive Data Percent cell count reference ranges are not reported, since discordance with absolute values may lead to misinterpretation of CBC data. Current Interpretive Data was last revised on 2017. Basophil pct 0.7 % [facility] Comment: Interpretive Data Percent cell count reference ranges are not reported, since discordance with absolute values may lead to misinterpretation of CBC data. Current Interpretive Data was last revised on 2017. Blood 03/13/2024 9:25 AM RETAIL MERCHANDISING SPECIALIST 03/13/2024 9:40 AM RETAIL MERCHANDISING SPECIALIST Loco Jackson MD LAB BLOOD ORDERABLES Final Re sult Performing Organization Address [facility] Co de Phone Number [address] [place] [address] * CBC with auto differential (03/13/2024 9:25 AM RETAIL MERCHANDISING SPECIALIST) [facility] WBC 4.5 3.8 - 9.9 K/cumm Hgb 14.6 13.0 - 17.5 g/dL [facility] Hct 44.0 38.9 - 50.3 % [facility] Plt 183 150 - 400 K/cumm [facility] MPV 10.8 9.1 - 12.3 fL [facility] RBC 4.71 4.30 - 5.80 M/cumm [facility] MCV 93.4 81.3 - 96.4 fL [facility] MCH 31.0 27.1 - 33.3 pg [facility] MCHC 33.2 32.3 - 35.7 g/dL [facility] RDW CV 13.0 11.1 - 14.9 % [facility] RDW SD 44.8 35.7 - 48.1 fL [facility] NRBC abs 0.00 0.00 - 0.01 K/cumm [facility] Blood 03/13/2024 9:25 AM RETAIL MERCHANDISING SPECIALIST 03/13/2024 9:40 AM RETAIL MERCHANDISING SPECIALIST Loco Jackson MD LAB BLOOD ORDERABLES Final Re sult Performing Organization Address [facility] [address] [facility] Co de Phone Number [address] [place] [address] * (ABNORMAL) eGFR (03/08/2024 12:19 PM RETAIL MERCHANDISING SPECIALIST) eGFR 56(L) >=60 mL/min/1. 73 m2 Comment: [...] was last reviewed 2020. Testing performed by: [address] [address] Blood 03/08/2024 12:1 9 PM RETAIL MERCHANDISING SPECIALIST 03/08/2024 1:38 PM RETAIL MERCHANDISING SPECIALIST Loco Jackson MD LAB BLOOD ORDERABLES Final Re sult [facility] [address] [facility] Department [place] [address] * Lipid panel (03/08/2024 12:19 PM RETAIL MERCHANDISING SPECIALIST) Pathologist [facility] Cholesterol 154 30 - 199 mg/dL Comment: [...] last revised on 2017. Testing performed by: [address] [place] [address] Triglycerides 77 <=149 mg/dL [facility] Comment: Interpretive [...] last revised on 2017. Testing performed by: [address] [address] HDL 53 >=40 mg/dL [facility] Comment: Interpretive [...] last revised on 2017. Testing performed by: [address] [address] LDL, calculated 86 <=129 mg/dL [facility] Comment: [...] 2. NCEP Expert Panel. Circulation 2004;110:227 3. Christine M et al. MARIELA Cardiol. 2020 June 06;5(5):540-548. doi: 10.1001/[email or web address].2020.0013 Current Interpretive Data was last revised on 2023. Testing performed by: [address] [address] Non-HDL Cholesterol 101 mg/dL [facility] Comment: Interpretive [...] last revised on 2017. Testing performed by: [address] [address] Chol/HDL ratio 3 [facility] Comment:Testing performed by : [address] [address] Blood 03/08/2024 12:1 9 PM RETAIL MERCHANDISING SPECIALIST 03/08/2024 1:38 PM RETAIL MERCHANDISING SPECIALIST Narrative [facility] - 03/08/2024 2:12 PM RETAIL MERCHANDISING SPECIALIST Has the patient been fasting for 8 hours or more?->Yes us Loco Jackson MD LAB BLOOD ORDERABLES Final Re sult [facility] [address] [facility] Department [place] [address] * (ABNORMAL) Comprehensive metabolic panel (03/08/2024 12:19 PM RETAIL MERCHANDISING SPECIALIST) [facility] Sodium 139 135 - 145 mmol/L Comment:Testing performed by : [address] [address] Potassium, pl 4.9 3.3 - 4.9 mmol/L [facility] Comment: HEMOLYZED: Hemolysis interferes with the above test. Testing performed by: [address] [address] Chloride 102 97 - 110 mmol/L [facility] Comment:Testing performed by : [address], [place]., [address] CO2 22 22 - 32 mmol/L [facility] Comment:Testing performed by : [address] [address] Anion gap 15 2 - 15 mmol/L [facility] Comment:Testing performed by : [address], [place]., [address] BUN 16 6 - 25 mg/dL [facility] Comment:Testing performed by : [address] [address] Creatinine 1.40(H) 0.80 - 1.30 mg/dL [facility] Comment:Testing performed by : [address] [address] Glucose 87 70 - 199 mg/dL [facility] Comment: Interpretive Data Fasting glucose >/= [...] was last revised 2022. Testing performed by: [address] [address] Calcium 9.8 8.5 - 10.3 mg/dL [facility] Comment:Testing performed by : [address] [address] Bilirubin, total 0.8 0.1 - 1.2 mg/dL [facility] Comment:Testing performed by : [address] [address] Protein, pl 7.6 6.5 - 8.5 g/dL [facility] Comment:Testing performed by : [address] [address] Albumin 4.5 3.5 - 5.0 g/dL [facility] Comment:Testing performed by : [address] [address] Alk phos 33(L) 40 - 130 Units/L [facility] Comment:Testing performed by : [address], [address] ALT 56(H) 7 - 55 Units/L [facility] Comment: HEMOLYZED: Hemolysis interferes with the above test. Testing performed by: [address] [address] AST 32 10 - 50 Units/L [facility] Comment: HEMOLYZED: Hemolysis interferes with the above test. Testing performed by: [address] [address] Blood 03/08/2024 12:1 9 PM RETAIL MERCHANDISING SPECIALIST 03/08/2024 1:38 PM RETAIL MERCHANDISING SPECIALIST us Loco Jackson MD LAB BLOOD ORDERABLES Final Re sult [facility] Department [place] [address] * PSA screen (12/22/2023 2:26 PM RETAIL MERCHANDISING SPECIALIST) PSA-Total 3.91 <=5.40 ng/mL Comment: Interpretive Data [...] data last revised 21. Testing performed by: [address] [address] Blood 12/22/2023 2:26 PM RETAIL MERCHANDISING SPECIALIST 12/22/2023 3:01 PM RETAIL MERCHANDISING SPECIALIST us Dharmesh Phillips MD LAB BLOOD ORDERABLES Final Re sult [facility] [address] [facility] Department [place] [address] * XR KUB (12/18/2023 1:43 PM RETAIL MERCHANDISING SPECIALIST) Anatomical Region Laterality Modality Body, Abdomen N/A Computed Radiogr aphy 12/21/2023 6:24 PM RETAIL MERCHANDISING SPECIALIST Narrative 12/21/2023 6:26 PM RETAIL MERCHANDISING SPECIALIST EXAM DESCRIPTION: XR KUB REASON FOR STUDY: n20.0 Pt states this is a follow up on kidney stones dx. TECHNIQUE: Single radiographic view of the abdomen. COMPARISON: Ultrasound 09/28/2022 FINDINGS: Nonobstructive bowel gas pattern. No definite nephrolithiasis by plain film. Prominent marginal osteophyte formation of the visualized lower thoracic and upper lumbar spine with moderate change more inferiorly. Mild osteoarthritis right hip jjul-ny-zfnlytko of the left. No acute osseous findings. IMPRESSION: No definite nephrolithiasis by plain film. Nonobstructive bowel gas pattern. Moderate spondylosis thoracic and lumbar spine. THIS IS AN ELECTRONICALLY VERIFIED FINAL REPORT 12/21/2023 6:26 PM - Electronically signed by Bernardino Pierce M.D. MJ: [facility] Report ID: [id number] Reading Location: [id number] Procedure Note Bernardino Pierce MD - 12/21/2023 [...] moderate change more inferiorly.Mild osteoarthritis right hip qdoq-tw-skejnzuk of the left. No acute osseous findings. IMPRESSION: No definite nephrolithiasis by plain film. Nonobstructive bowel gas pattern. Moderate spondylosis thoracic and lumbar spine. THIS IS AN ELECTRONICALLY VERIFIED FINAL REPORT 12/21/2023 6:26 PM - Electronically signed by Bernardino Pierce M.D. MJ: LOPEZ Report ID: [id number] Reading Location: [place] [address] us Dharmesh Phillips MD IMG XR PROCEDURES Final Resul t * (ABNORMAL) Hepatitis panel, acute (06/24/2019 8:19 AM CDT) HepBsAg NONREACT NONREACTIVE [facility] Comment: [employer] CentaurXP using DAVI (chemiluminescent immunoassay) technology. NONREACTIVE: IgM antibodies to Hepatitis B Surface antigen not detected. REACTIVE: IgM antibodies to Hepatitis B Surface antigen detected. Reactive results will be confirmed by neutralization testing. HBsAb qn 166.37 mIU/mL [facility] Comment: [employer] CentaurXP using DAVI (chemiluminescent immunoassay) technology. 9.99 IU/L or less.....NONREACTIVE: IgM antibodies to Hepatitis B Surface antibody are not detected. 10.00 IU/L or greater..REACTIVE: IgM antibodies to Hepatitis B Surface antibody are detected. Hep B core IgM NONREACT NONREACTIVE [facility] Comment: [employer] CentaurXP using DAVI (chemiluminescent immunoassay) technology. NONREACTIVE: IgM antibodies to Hepatitis B Core antigen not detected. EQUIVOCAL: IgM antibodies to Hepatitis B Core antigen may or may not be present. Obtain a new specimen and retest. REACTIVE: IgM antibodies to Hepatitis B Core antigen detected. Hep A IgM NONREACT NONREACTIVE [facility] Comment: [employer] CentaurXP using DAVI (chemiluminescent immunoassay) technology. NONREACTIVE: IgM antibodies to Hepatitis A not detected. This does not exclude possibility of exposure to Hepatitis A or early acute infection. EQUIVOCAL:IgM antibodies to Hepatitis A may or may not be present. Suggest recollection and retest. REACTIVE: Antibodies to Hepatitis A detected. Hep C Ab REACTIVE(A) NONREACTIVE [facility] Comment: Sample to be confirmed by HCV quantitative NAAT. [employer] using DAVI (chemiluminescent immunoassay) technology. NONREACTIVE: Antibodies [...] MICROBIOLOGY - GENERAL OR [place]AB[place] [address], [facility] [phone] * Colonoscopy (01/19/2018) Anatomical Region Laterality Modality Other Historical Provider ENDOSCOPY PROCEDURES Sarah l Result from Last 3 Months or Most Recently Relevant to Health Maintenance Insurance [facility] Care Teams [employer] Relationship Specialty Start Date End Date Loco Jackson MD PCP - General 06/18/18
[2024-03-16] MEDS: MECLIZINE HCL 25 MG TABLET PO (13:14)
--- NOTE | 2024-03-16 13:15 | ED_ITS ---
HPI - General Adult General Chief complaint: Dizziness Stated complaint: vertigo Time Seen by Provider: 03/16/24 12:28 History of Present Illness HPI narrative: 63-year-old male presented to the emergency department for evaluation for vertigo symptoms. Patient does have a prior history of vertigo for which he has had prior follow-up with ENT and does have a history of successful use meclizine. Patient states approximately 2 months ago was his last episode of vertigo and only lasted in the morning. Patient states this morning when he woke up he did have onset of vertigo. Patient states while he was eating but he had onset of dizziness and clamminess which he states is classic for his vertigo. Patient denies any focal numbness or weakness. Patient was concerned due to the on the symptoms and ultimately called 911. They did do a stroke assessment over the phone and patient denies any numbness weakness change in speech change in vision. Patient states he did feel improved once he got to the ambulance. Upon arrival emergency department patient states his vertigo is im proved. Patient continues to deny any other associated symptoms. Patient states he went to be evaluated to make sure it was nothing more than vertigo but states the symptoms are consistent with his vertigo. Related Data Home Medications ?Medication ?Instructions ?Recorded ?Confirmed ?Last Taken ?Type amlodipine 10 mg-atorvastatin 10 1 tablet PO DAILY 06/06/19 06/23/21 06/05/19 09:00 History mg tablet valacyclovir 500 mg tablet 500 mg PO DAILY 06/06/19 06/23/21 06/05/19 09:00 History sildenafil 100 mg tablet 100 mg PO DIRECTED PRN Erectile 06/24/21 06/24/21 Unknown History Dysfunction Allergies Allergy/AdvReac Type Severity Reaction Status Date / Time No Known Allergies Allergy Verified 08/25/23 07:37 Review of Systems Review of Systems: All systems reviewed & are unremarkable except as noted in HPI and below PMFSH Past Medical History Medical History Chronic kidney disease Hypercholesterolemia Hypertension Family History Family History Father Diabetes mellitus Mother Diabetes mellitus Sibling Diabetes mellitus Sibling Diabetes mellitus Sibling Diabetes mellitus Sibling Diabetes mellitus Sibling Diabetes mellitus Sibling Diabetes mellitus Sibling Diabetes mellitus Sibling Diabetes mellitus Social History Social History (Updated 08/27/23 @ 15:42 by Keisha Duarte MD) Smoking status: Never smoker Alcohol intake: never Substance use: never Living arrangements: alone Occupation/Education: occupation Additional occupation/education comments: Works for [employer] Gender identity (if verbalized by the patient): Male Spiritual care concerns: No Exam Narrative: APPEARANCE: Well appearing, no pain, no distress, well-nourished. HEAD: normocephalic, atraumatic. EYES: PERRLA/EOMI, conjunctivae clear. NOSE: Normal no drainage EARS:TMS clear with good light reflex. THROAT: Pharynx clear, no exudate. NECK: Supple. No adenopathy, no masses. RESPIRATORY: Airway patent, respirations nonlabored. Clear to auscultation bilaterally, no rales, rhonchi, wheezing. CARDIOVASCULAR: Regular rate and rhythm without murmurs rubs or gallops. ABDOMINAL: Soft, nontender, nondistended, normal bowel sounds MUSCULOSKELETAL: Moves all extremities. Strength/ROM intact, No edema, No calf tenderness. NEURO: Alert. Cranial nerves II through XII intact. Good gait. Good coordination SKIN: Warm, dry. Normal Color Course Vital Signs Vital signs: Vital Signs Temperature 97.7 F 03/16/24 12:00 Pulse Rate 66 03/16/24 12:00 Respiratory Rate 14 03/16/24 12:00 Blood Pressure 130/77 03/16/24 12:00 Pulse Oximetry 100 03/16/24 12:00 Oxygen Delivery Room Air 03/16/24 12:00 Temperature 97.7 F 03/16/24 12:00 Pulse Rate 65 03/16/24 16:37 Respiratory Rate 12 03/16/24 16:37 Blood Pressure 122/70 03/16/24 16:37 Pulse Oximetry 100 03/16/24 16:37 Oxygen Delivery Room Air 03/16/24 12:00 Medical Decision Making MDM Narrative Medical decision making narrative: 63-year-old male presenting emergency department for evaluation for vertigo symptoms. Patient had a normal comprehensive neuro exam. Patient was treated with p.o. meclizine and does feel improved. Head CT showed normal brain. Patient was able to ambulate it is baseline. Was updated results of his workup. Patient was encouraged close follow-up with ENT for his recurrent left ear pressure and encouraged to have close follow-up with his primary care physician to schedule a sleep study for his sleep apnea. Differential Diagnosis Differential Diagnosis: Sinusitis, peripheral vertigo, central vertigo Vital Signs Vital Signs: Vital Signs Temperature 97.7 F 03/16/24 12:00 Pulse Rate 66 03/16/24 12:00 Respiratory Rate 14 03/16/24 12:00 Blood Pressure 130/77 03/16/24 12:00 Pulse Oximetry 100 03/16/24 12:00 Oxygen Delivery Room Air 03/16/24 12:00 Temperature 97.7 F 03/16/24 12:00 Pulse Rate 65 03/16/24 16:37 Respiratory Rate 12 03/16/24 16:37 Blood Pressure 122/70 03/16/24 16:37 Pulse Oximetry 100 03/16/24 16:37 Oxygen Delivery Room Air 03/16/24 12:00 Imaging Data Radiologist's impression: Impressions Head CT 03/16/24 13:52 IMPRESSION: 1. Normal brain. Discharge Plan Discharge Clinical Impression: Vertigo Patient Disposition: Home, Self-Care Condition: Stable Instructions: Antibiotic Form, Vertigo (ED) Additional Instructions: Meclizine as needed for vertigo control. Have close follow-up with ENT. I do recommend having close follow-up with primary care physician for an outpatient sleep study. If you have any worsening symptoms then please call or return to the emergency department. Patient Language: Spanish Prescriptions: New meclizine 25 mg tablet 25 mg PO BID PRN (Reason: dizziness) 7 Days Qty: 14 0RF No Action sildenafil 100 mg tablet 100 mg PO DIRECTED PRN (Reason: Erectile Dysfunction) tamsulosin 0.4 mg capsule 0.4 mg PO HS Qty: 14 0RF ondansetron 4 mg tablet,disintegrating 4 mg PO Q8H PRN (Reason: nausea and vomiting) Qty: 7 0RF acetaminophen 500 mg capsule 1,000 mg PO Q6H PRN (Reason: pain) Qty: 20 0RF morphine 15 mg tablet 15 mg PO Q8H PRN (Reason: pain) Qty: 12 0RF valacyclovir 500 mg tablet 500 mg PO DAILY amlodipine-atorvastatin 10-10 mg tablet 1 tablet PO DAILY Follow-up/Referrals: Chris Brown MD [Physician] - Renetta,Loco Serra MD [Primary Care Provider] -
--- NOTE | 2024-03-16 14:43 | PC.NURSE ---
Patient sat up, stood, and walked with minor dizziness; less dizzy/unsteady after standing in one spot.
== END 2024-03-16 16:38 | disposition home or self-care (01) ==
PROVIDERS: Emergency Provider Emergency Medicine; PCP Family Medicine
DX: R42 Dizziness and giddiness (principal); I12.9 Hypertensive chronic kidney disease with stage 1 through stage 4 chronic kidney disease, or unspecified chronic kidney disease; N18.9 Chronic kidney disease, unspecified; E78.00 Pure hypercholesterolemia, unspecified; R00.1 Bradycardia, unspecified; I51.7 Cardiomegaly; R94.31 Abnormal electrocardiogram [ECG] [EKG]
CPT/HCPCS: 70450; 93005; 99284; A9270